=== PATIENT | female | born 1960 | race African-American/Black ===

== ENCOUNTER 2017-01-16 11:08 | Emergency (ER) | payer OTHER ==
[~2017-01-16 11:08] MED LIST: ATOR40TA49 PO; CHOL50006 PO; GABA300C3 PO; HYDR-3534 PO; ISOS60 PO; LISI-586 PO; PLAV75TA PO; ST JTAB PO; XANA0.5T PO
[2017-01-16 11:11] VITALS: BP 213/105; PULSE 62; RESP 17; TEMP 98.6; O2SAT 97
--- NOTE | 2017-01-16 11:42 | PD ---
HPI Chief Complaint: Injury Time Seen by Provider: 11:42 Travel History International Travel<30 days: No Contact w/Intl Traveler<30days: No Traveled to known affect area: No History of Present Illness HPI 56-year-old female presents to the emergency department complaining of left shoulder and left elbow pain after a mechanical fall that occurred yesterday. She says she fell onto her left side after a slip onto the floor at home. Patient states that she is here today just to make sure that 'everything is okay '. Denies head trauma, LOC, neck, back pain. States she has some tenderness over the left anterior shoulder but able to move through full range of motion. Her left elbow is mildly tender to palpation but has full range of motion and denies numbness or tingling to the arm. PFSH Past Medical History Arthritis: No Asthma: No Autoimmune Disease: No Blood Disorders: No Anxiety: Yes Depression: No Heart Rhythm Problems: No Cancer: No Cardiac Catheterization: Yes Cardiovascular Problems: Yes (HTN) High Cholesterol: No Chemotherapy: No Chest Pain: Yes Congestive Heart Failure: No COPD: No Cerebrovascular Accident: No Diabetes: No Diminished Hearing: No Endocrine: No GERD: No Glaucoma: No Genitourinary: No Headaches: No Hepatitis: No Hiatal Hernia: No Hypertension: Yes Immune Disorder: No Kidney Stones: No Musculoskeletal: No Neurologic: No Psychiatric: No Reproductive: No Respiratory: No Immunizations Current: No Migraines: No Myocardial Infarction: No Radiation Therapy: No Renal Failure: No Seizures: No Sickle Cell Disease: No Sleep Apnea: No Thyroid Disease: No Ulcer: No Past Surgical History Abdominal Surgery: Yes (CHOLECYSTECTOMY) AICD: No Appendectomy: No Arteriovenous Shunt: No Cardiac Surgery: No Cholecystectomy: Yes (1998) Coronary Artery Bypass Graft: No Coronary Stent: Yes (X3) Ear Surgery: No Endocrine Surgery: No Eye Surgery: No Genitourinary Surgery: No Gynecologic Surgery: Yes (ROCIO/BSO) Hysterectomy: Yes (1994-- TOTAL ) Insulin Pump: No Joint Replacement: No Oral Surgery: No Pacemaker: No Thoracic Surgery: No Other Surgery: Yes Social History Alcohol Use: No Tobacco Use: No Substance Use: No Allergies-Medications (Allergen,Severity, Reaction): Coded Allergies: No Known Allergies (Verified , 02/01/15) Reported Meds & Prescriptions Reported Meds & Active Scripts Active Zestoretic 20/12.5 (Lisinopril/Hctz 20 mg/12.5 mg) 20 Mg/12.5 Mg Tab 1 Tab PO DAILY Lipitor 40 Mg Tab (Atorvastatin Calcium) 40 Mg Tab 40 Mg PO DAILY Lortab 7.5 mg/325 mg (Hydrocodone/Acetaminophen 7.5 mg/325 mg) 1 Tab 1 Tab PO Q4H PRN Xanax 0.5 mg (Alprazolam) Alprazolam 0.5 mg Tab 1 Tab PO DAILY PRN Gabapentin 300 Mg Cap 300 Mg PO TID Plavix (Clopidogrel Bisulfate) 75 Mg Tab 75 Mg PO DAILY Imdur 60 Mg (Isosorbide Mononitrate) 60 Mg Tabcr 60 Mg PO DAILY Reported Vitamin D (Cholecalciferol) 5,000 Unit Tab 1,000 Unit PO DAILY Aspirin Ec Low Dose (Aspirin) 81 Mg Tab 81 Mg PO HS Review of Systems Except as stated in HPI: all other systems reviewed are Neg Physical Exam Narrative GENERAL: Well-nourished, well-developed patient. SKIN: Focused skin assessment warm/dry. HEAD: Normocephalic.Atraumatic. EYES: No scleral icterus. No injection or drainage. PERRLA, EOMI NECK: Supple, trachea midline. No JVD or lymphadenopathy. No midline tenderness. CARDIOVASCULAR: Regular rate and rhythm without murmurs, gallops, or rubs. RESPIRATORY: Breath sounds equal bilaterally. No accessory muscle use. MUSCULOSKELETAL: No cyanosis, or edema. Left elbow- full ROM with mild tenderness to the extreme flexion and extension. neurovascularly intact. no clicks pops, deformities, ecchymosis, or edema. Left shoulder- mild TTP over anterior AC joint, full range of motion with mild ' pulling' sensation to the extremes of ROM. neurovascularly intact. no clocks, pops, deformities, ecchymosis or edema. BACK: Nontender without obvious deformity. No CVA tenderness. No midline tenderness Data Data Last Documented VS Vital Signs Date Time Temp Pulse Resp B/P (MAP) Pulse Ox O2 Delivery O2 Flow Rate FiO2 01/16/17 12:07 01/16/17 11:11 98.6 62 17 97 Room Air Orders Orders Ed Discharge Order (01/16/17 11:42) MDM Medical Decision Making Medical Screen Exam Complete: Yes Emergency Medical Condition: Yes Differential Diagnosis Left elbow pain contusion versus fracture versus sprain Left shoulder contusion versus fracture versus sprain Narrative Course 56-year-old female presents to the emergency department complaining of left shoulder and left elbow pain after a mechanical fall that occurred yesterday. She says she fell onto her left side after a slip onto the floor at home. Patient states that she is here today just to make sure that 'everything is okay '. Denies head trauma, LOC, neck, back pain. States she has some tenderness over the left anterior shoulder but able to move through full range of motion. Her left elbow is mildly tender to palpation but has full range of motion and denies numbness or tingling to the arm. Vital Signs stable. Patient has full range of motion of shoulder and elbow with minimal discomfort. No deformities, skin intact, no obvious contusions. Patient able to perform Apley's without difficulty, rotation of forearm, flexion and extension of the elbow. Patient states she has mild tenderness is with extreme flexion located in the lateral and medial epicondyle. I had to exert a greater than normal pressure to elicit this pain. I offered patient x-rays of her shoulder and elbow after explaining my findings to patient. Patient stated that she will come back if her pain does not resolve. Based off of H&P I have a low suspicion of fracture at this time. Patient understands and will comply. Pt to use tylenol or motrin for pain relief. Compression and ice as well. Diagnosis Primary Impression: Shoulder contusion Qualified Codes: S40.012A - Contusion of left shoulder, initial encounter Additional Impression: Elbow contusion Qualified Codes: S50.02XA - Contusion of left elbow, initial encounter Referrals: Primary Care Physician Additional Instructions: Follow-up with her primary care physician within 2-3 days. If your shoulder or elbow pain does not improve or worsens, return to the emergency department. If he developed numbness or tingling of the extremity return to the emergency department. Continue Tylenol as needed for pain. Disposition: 01 DISCHARGE HOME Condition: Stable Minna Martínez Jan 16, 2017 11:42
== END 2017-01-16 12:08 | disposition home or self-care (01) ==
LOC: NEPK 11:08
DX: S40.012A Contusion of left shoulder, initial encounter (principal); S50.02XA Contusion of left elbow, initial encounter; W01.0XXA Fall on same level from slipping, tripping and stumbling without subsequent striking against object, initial encounter; Y92.009 Unspecified place in unspecified non-institutional (private) residence as the place of occurrence of the external cause
CPT/HCPCS: 99282

== ENCOUNTER 2017-04-27 21:36 | Emergency (ER) | payer OTHER ==
[~2017-04-27] VITALS: Ht 160 cm; Wt 112.0 kg
[2017-04-27 21:51] VITALS: BP 163/78; PULSE 68; RESP 20; TEMP 99.5; O2SAT 97
[2017-04-27] MEDS ORDERED: ISOS60TA PO (22:07)
[2017-04-27] MEDS ORDERED: LISI20TA PO (22:07)
[2017-04-27] MEDS ORDERED: ASPI81CH6 CHEW (22:07)
[2017-04-27] MEDS ORDERED: ATOR80TA45 PO (22:07)
[2017-04-27] MEDS ORDERED: VITA1000 PO (22:13)
[2017-04-27] MEDS ORDERED: PLAV75TA29 PO (22:13)
[2017-04-27] MEDS ORDERED: DAILTAB38 PO (22:13)
[2017-04-27] MEDS ORDERED: guaiFENesin/CODEINE SYRUP 200 MG/20 MG/10 ML CUP PO ONE (22:15)
[2017-04-27] MEDS ORDERED: HYDR-3583 PO (22:15)
--- NOTE | 2017-04-27 22:21 | PD ---
HPI Chief Complaint: Cold / Flu Symptoms Time Seen by Provider: 22:06 Travel History International Travel<30 days: No Contact w/Intl Traveler<30days: No Traveled to known affect area: No History of Present Illness HPI 57yo F with PMH of CAD s/p stent here with c/o cough, fever, throat pain, nasal congestion for 3 days. Said she has been coughing a lot and has some pain in chest only when she coughs. Denies any chest pain otherwise. Denies any sob, n /v, abdominal pain, focal weakness or numbness. PFSH Past Medical History Arthritis: No Asthma: No Autoimmune Disease: No Blood Disorders: No Anxiety: Yes Depression: No Heart Rhythm Problems: No Cancer: No Cardiac Catheterization: Yes Cardiovascular Problems: Yes (HTN) High Cholesterol: Yes Chemotherapy: No Chest Pain: Yes Congestive Heart Failure: No COPD: No Cerebrovascular Accident: No Coronary Artery Disease: Yes Diabetes: No Diminished Hearing: No Endocrine: No GERD: No Glaucoma: No Genitourinary: No Headaches: No Hepatitis: No Hiatal Hernia: No Hypertension: Yes Immune Disorder: No Kidney Stones: No Musculoskeletal: No Neurologic: No Psychiatric: No Reproductive: No Respiratory: No Immunizations Current: No Migraines: No Myocardial Infarction: No Radiation Therapy: No Renal Failure: No Seizures: No Sickle Cell Disease: No Sleep Apnea: No Thyroid Disease: No Ulcer: No Influenza Vaccination: No ?: Not : 6 Para: 4 : 2 Past Surgical History Abdominal Surgery: Yes (CHOLECYSTECTOMY) AICD: No Appendectomy: No Arteriovenous Shunt: No Cardiac Surgery: No Cholecystectomy: Yes (1998) Coronary Artery Bypass Graft: No Coronary Stent: Yes (X3) Ear Surgery: No Endocrine Surgery: No Eye Surgery: No Genitourinary Surgery: No Gynecologic Surgery: Yes (ROCIO/BSO) Hysterectomy: Yes Insulin Pump: No Joint Replacement: No Oral Surgery: No Pacemaker: No Thoracic Surgery: No Other Surgery: Yes Social History Alcohol Use: No Tobacco Use: No Substance Use: No Allergies-Medications (Allergen,Severity, Reaction): Coded Allergies: No Known Allergies (Verified , 02/01/15) Reported Meds & Prescriptions Reported Meds & Active Scripts Active Reported Hydrocodone-Acetaminophen 10-325 mg Tab 1 Tab PO BID Vitamin D-1000 (Cholecalciferol) 1,000 Unit Tab 1,000 Units PO DAILY Daily Multiple Vitamin (Multiple Vitamin) 1 Tab Tab 1 Tab PO DAILY Plavix (Clopidogrel Bisulfate) 75 Mg Tab 75 Mg PO DAILY Isosorbide Mononitrate ER (Isosorbide Mononitrate) 60 Mg Tab 60 Mg PO DAILY Atorvastatin (Atorvastatin Calcium) 80 Mg Tab 80 Mg PO HS Aspirin Low Dose (Aspirin) 81 Mg Chew 81 Mg CHEW DAILY Lisinopril-Hctz 20-12.5 mg Tab (Lisinopril/Hydrochlorothiazide) 20 Mg-12.5 Mg Tablet 1 Tab PO DAILY Review of Systems Except as stated in HPI: all other systems reviewed are Neg Physical Exam Narrative GENERAL: 57yo F in mild distress. SKIN: Focused skin assessment warm/dry. HEAD: Atraumatic. Normocephalic. EYES: Pupils equal and round. No scleral icterus. No injection or drainage. ENT: No nasal bleeding or discharge. Mucous membranes pink and moist. NECK: Trachea midline. No JVD. CARDIOVASCULAR: Regular rate and rhythm. No murmur appreciated. RESPIRATORY: No accessory muscle use. Clear to auscultation. Breath sounds equal bilaterally. GASTROINTESTINAL: Abdomen soft, non-tender, nondistended. MUSCULOSKELETAL: No obvious deformities. No clubbing. No cyanosis. No edema. NEUROLOGICAL: Awake and alert. No obvious cranial nerve deficits. Motor grossly within normal limits in all extremities. Sensation intact. Normal speech. PSYCHIATRIC: Appropriate mood and affect; insight and judgment normal. Data Data Last Documented VS Vital Signs Date Time Temp Pulse Resp B/P (MAP) Pulse Ox O2 Delivery O2 Flow Rate FiO2 04/27/17 22:08 68 18 97 Room Air 04/27/17 21:51 99.5 163/78 (106) Orders Orders Influenzae A/B Antigen (04/27/17 22:11) Chest, Single Ap (04/27/17 ) Electrocardiogram (04/27/17 ) Guaifen-Cod 200-20 Mg/10ml Liq (Robituss (04/27/17 22:15) Complete Blood Count With Diff (04/27/17 22:54) Basic Metabolic Panel (Bmp) (04/27/17 22:54) Troponin I (04/27/17 22:54) Prothrombin Time / Inr (Pt) (04/27/17 22:54) Act Partial Throm Time (Ptt) (04/27/17 22:54) MDM Medical Decision Making Medical Screen Exam Complete: Yes Emergency Medical Condition: Yes Interpretation(s) EKG: NSR 65bpm. TWI I, aVL. TWI V2 is new compare to prior. Differential Diagnosis URI vs. pneumonia vs. bronchitis vs. influenza Narrative Course 57yo F with flu like symptoms. Will check influenza, CXR and EKG. CXR negative. Although chest pain is atypical, there is new TWI V2 in a patient with CAD so will add labs including cardiac enzyme. Influenza still pending. Sign out to next team to follow up and reevaluate. Diagnosis Primary Impression: Atypical chest pain Vira Arreguin DO Apr 27, 2017 22:21
--- NOTE | 2017-04-27 22:45 | RADRPT ---
EXAM DATE/TIME: 04/27/2017 22:19 [facility] COMPARISON: CHEST SINGLE AP, July 31, 2010, 14:45. INDICATIONS : Cough. MEDICAL HISTORY : None. SURGICAL HISTORY : None. ENCOUNTER: Initial ACUITY: 3 days PAIN SCORE: 0/10 LOCATION: Bilateral chest FINDINGS: A single view of the chest demonstrates the lungs to be symmetrically aerated without evidence of mas s, infiltrate or effusion. The cardiomediastinal contours are unremarkable. Osseous structures are intact. CONCLUSION: The lungs are clear. Alexx Purcell MD on April 27, 2017 at 22:43 Board Certified Radiologist. This report was verified electronically.
[2017-04-27 23:15] LABS: AUTOMATED NEUTROPHIL # 5.6 TH/MM3 (1.8-7.7); BASOPHIL # 0.1 TH/MM3 (0-0.2); BASOPHIL % 1.2 % (0.0-2.0); EOSINOPHIL # 0.1 TH/MM3 (0-0.4); EOSINOPHIL % 1.4 % (0.0-4.0); HEMATOCRIT 37.8 % (35.0-46.0); HEMOGLOBIN 12.5 GM/DL (11.6-15.3); LYMPH % 23.9 % (9.0-44.0); LYMPHOCYTE # 1.9 TH/MM3 (1.0-4.8); MEAN CELL VOLUME 91.3 FL (80.0-100.0); MEAN CORPUSCULAR HEMOGLOBIN 30.2 PG (27.0-34.0); MEAN PLATELET VOLUME 9.6 FL (7.0-11.0); MONOCYTE # 0.3 TH/MM3 (0-0.9); NEUT % 69.5 % (16.0-70.0); PLATELET COUNT 165 TH/MM3 (150-450); RED BLOOD COUNT 4.14 MIL/MM3 (4.00-5.30); RED CELL DISTRIBUTION WIDTH 12.5 % (11.6-17.2); WHITE BLOOD COUNT 7.9 TH/MM3 (4.0-11.0)
[2017-04-27 23:21] LABS: CHLORIDE 105 MEQ/L (98-107); SODIUM (NA) 140 MEQ/L (136-145)
[2017-04-27 23:23] LABS: CALCIUM 8.6 MG/DL (8.5-10.1)
[2017-04-27 23:24] LABS: BICARBONATE 28.4 MEQ/L (21.0-32.0); BLOOD UREA NITROGEN 26 MG/DL (7-18); GLUCOSE,RANDOM 97 MG/DL (74-106)
[2017-04-27 23:27] LABS: PROTHROMBIN TIME - PATIENT 10.3 SEC (9.8-11.6)
[2017-04-27 23:28] LABS: GLOMERULAR FILTRATION RATE 62 ML/MIN (>89)
[2017-04-27 23:32] LABS: TROPONIN I LESS THAN 0.02 NG/ML (0.02-0.05)
[2017-04-27 23:40] VITALS: BP 170/81; PULSE 72; RESP 16; O2SAT 96
[2017-04-27] MEDS ORDERED: GUAISYP4 PO (23:52)
--- NOTE | 2017-04-27 23:52 | PD ---
Physical Exam Time Seen by Provider: 23:[address] Arreguin left this patient with me to check the laboratory and make a disposition. Data Data Last Documented VS Vital Signs Date Time Temp Pulse Resp B/P (MAP) Pulse Ox O2 Delivery O2 Flow Rate FiO2 04/27/17 23:40 72 16 170/81 (110) 96 Room Air 04/27/17 21:51 99.5 Orders Orders Influenzae A/B Antigen (04/27/17 22:11) Chest, Single Ap (04/27/17 ) Electrocardiogram (04/27/17 ) Guaifen-Cod 200-20 Mg/10ml Liq (Robituss (04/27/17 22:15) Complete Blood Count With Diff (04/27/17 22:54) Basic Metabolic Panel (Bmp) (04/27/17 22:54) Troponin I (04/27/17 22:54) Prothrombin Time / Inr (Pt) (04/27/17 22:54) Act Partial Throm Time (Ptt) (04/27/17 22:54) Labs Laboratory Tests Test 04/27/17 23:00 White Blood Count 7.9 TH/MM3 Red Blood Count 4.14 MIL/MM3 Hemoglobin 12.5 GM/DL Hematocrit 37.8 % Mean Corpuscular Volume 91.3 FL Mean Corpuscular Hemoglobin 30.2 PG Mean Corpuscular Hemoglobin Concent 33.0 % Red Cell Distribution Width 12.5 % Platelet Count 165 TH/MM3 Mean Platelet Volume 9.6 FL Neutrophils (%) (Auto) 69.5 % Lymphocytes (%) (Auto) 23.9 % Monocytes (%) (Auto) 4.0 % Eosinophils (%) (Auto) 1.4 % Basophils (%) (Auto) 1.2 % Neutrophils # (Auto) 5.6 TH/MM3 Lymphocytes # (Auto) 1.9 TH/MM3 Monocytes # (Auto) 0.3 TH/MM3 Eosinophils # (Auto) 0.1 TH/MM3 Basophils # (Auto) 0.1 TH/MM3 CBC Comment DIFF FINAL Differential Comment Prothrombin Time 10.3 SEC Prothromb Time International Ratio 1.0 RATIO Activated Partial Thromboplast Time 26.3 SEC Blood Urea Nitrogen 26 MG/DL Creatinine 1.10 MG/DL Random Glucose 97 MG/DL Calcium Level 8.6 MG/DL Sodium Level 140 MEQ/L Potassium Level 3.5 MEQ/L Chloride Level 105 MEQ/L Carbon Dioxide Level 28.4 MEQ/L Anion Gap 7 MEQ/L Estimat Glomerular Filtration Rate 62 ML/MIN Troponin I LESS THAN 0.02 NG/ML MDM Medical Record Reviewed: Yes Supervised Visit with EMILEE: No Interpretation(s) The chest x-ray is normal. The CBC is normal. The coagulation profile is normal. The basic metabolic profile shows a BUN of 26, creatinine 1.1 with GFR of 62 but is otherwise unremarkable. The troponin I is normal. Influenza A/B antigen is negative for flu a and flu B antigen. Differential Diagnosis Viral upper respiratory infection, pneumonia, bronchitis, electrolyte disorder, hypo-/hyperglycemia, strep pharyngitis, flu syndrome Narrative Course The patient has a viral upper respiratory infection. She will be given a codeine-containing cough syrup and follow-up with her primary care physician next week. She needs to increase her liquid intake. Diagnosis Primary Impression: Atypical chest pain Additional Impression: Viral upper respiratory infection Additional Instruction: The cough syrup was 1 or 2 teaspoons every 4-6 hours. Do not drink alcohol or drive on this cough syrup. Follow-up next week with your primary care physician. Med/Other Pt SpecificInfo: Prescription(s) given Scripts Guaifenesin-Codeine Liq (Guaifenesin AC Liq) 100-10 Mg/5 Ml Syrp 10 ML PO Q4H Y for COUGH, #1 BOTTLE 0 Refills Prov: Manuel Pereira MD 04/27/17 Disposition: 01 DISCHARGE HOME Condition: Stable Manuel Pereira MD Apr 27, 2017 23:52
--- NOTE | 2017-04-29 00:01 | EKG ---
Date Performed: 04/27/2017 Time Performed: 22:41:48 PTAGE: 57 years EKG: Sinus rhythm SEPTAL MYOCARDIAL INFARCTION MODERATE T-WAVE ABNORMALITY, CONSIDER LATERAL ISCHEMIA ABNORMAL ECG PREVIOUS TRACING : 07/31/2010 14.55 Since the prior tracing, there has been no significant dillard DOCTOR: To Machado Interpretating Date/Time 04/28/2017 23:59:45
== END 2017-04-28 00:08 | disposition home or self-care (01) ==
LOC: PHED 21:36
DX: R07.89 Other chest pain (principal); J06.9 Acute upper respiratory infection, unspecified; I10 Essential (primary) hypertension; I25.10 Atherosclerotic heart disease of native coronary artery without angina pectoris; Z79.02 Long term (current) use of antithrombotics/antiplatelets
CPT/HCPCS: 71045; 80048; 84484; 85025; 85610; 85730; 87804; 93005; 99285

== ENCOUNTER 2017-05-04 05:13 | Inpatient (IN) | payer OTHER ==
[~2017-05-04] VITALS: Ht 160 cm; Wt 101.1 kg
[2017-05-04] VITALS (9 sets, daily range): BP systolic 137–177; BP diastolic 65–86; PULSE 51–57; RESP 14–20; TEMP 96.8–98.8; O2SAT 95–98
[~2017-05-04 05:13] MED LIST changes: +ASPI81CH6 CHEW; -ATOR40TA49 PO; +ATOR80TA45 PO; -CHOL50006 PO; +DAILTAB38 PO; -GABA300C3 PO; +GUAISYP4 PO; -HYDR-3534 PO; +HYDR-3583 PO; -ISOS60 PO; +ISOS60TA PO; -LISI-586 PO; +LISI20TA PO; -PLAV75TA PO; +PLAV75TA29 PO; -ST JTAB PO; +VITA1000 PO; -XANA0.5T PO
--- NOTE | 2017-05-04 05:41 | PD ---
HPI Chief Complaint: Left-sided numbness and tingling and weakness. Time Seen by Provider: 05:40 Travel History International Travel<30 days: No Contact w/Intl Traveler<30days: No History of Present Illness HPI Patient 57-year-old female last normal about 1030 last night presents the emergency department for evaluation of left upper left lower extremity numbness and tingling weakness in a foggy feeling in her head. Patient states she awoke about 2:00 in the morning with these symptoms, she did not think anything of them and was able to go back to sleep. She woke up again at about 430 and still with the symptoms she decided to come in and be seen. States that she is on "blood thinners" but states that she is on a medication for the stents in her heart. She does not know the medication name. States symptoms have been constant ever since she woke up about 2:00 this morning. She denies any chest pain shortness of breath abdominal pain nausea or vomiting. PFSH Past Medical History Arthritis: No Asthma: No Autoimmune Disease: No Blood Disorders: No Anxiety: Yes Depression: No Heart Rhythm Problems: No Cancer: No Cardiac Catheterization: Yes Cardiovascular Problems: Yes (HTN) High Cholesterol: Yes Chemotherapy: No Chest Pain: Yes Congestive Heart Failure: No COPD: No Cerebrovascular Accident: No Coronary Artery Disease: Yes Diabetes: No Diminished Hearing: No Endocrine: No GERD: No Glaucoma: No Genitourinary: No Headaches: No Hepatitis: No Hiatal Hernia: No Hypertension: Yes Immune Disorder: No Kidney Stones: No Musculoskeletal: No Neurologic: No Psychiatric: No Reproductive: No Respiratory: No Immunizations Current: No Migraines: No Myocardial Infarction: No Radiation Therapy: No Renal Failure: No Seizures: No Sickle Cell Disease: No Sleep Apnea: No Thyroid Disease: No Ulcer: No : 6 Para: 4 : 2 Past Surgical History Abdominal Surgery: Yes (CHOLECYSTECTOMY) AICD: No Appendectomy: No Arteriovenous Shunt: No Cardiac Surgery: No Cholecystectomy: Yes (1998) Coronary Artery Bypass Graft: No Coronary Stent: Yes (X3) Ear Surgery: No Endocrine Surgery: No Eye Surgery: No Genitourinary Surgery: No Gynecologic Surgery: Yes (ROCIO/BSO) Hysterectomy: Yes Insulin Pump: No Joint Replacement: No Oral Surgery: No Pacemaker: No Thoracic Surgery: No Other Surgery: Yes Social History Alcohol Use: No Tobacco Use: No Substance Use: No Allergies-Medications (Allergen,Severity, Reaction): Coded Allergies: No Known Allergies (Verified , 02/01/15) Reported Meds & Prescriptions Reported Meds & Active Scripts Active Guaifenesin AC Liq (Guaifenesin-Codeine Liq) 100-10 Mg/5 Ml Syrp 10 Ml PO Q4H PRN Reported Metoprolol Tartrate 25 Mg Tab 12.5 Mg PO BID Hydrocodone-Acetaminophen 10-325 mg Tab 1 Tab PO BID Vitamin D-1000 (Cholecalciferol) 1,000 Unit Tab 1,000 Units PO DAILY Daily Multiple Vitamin (Multiple Vitamin) 1 Tab Tab 1 Tab PO DAILY Plavix (Clopidogrel Bisulfate) 75 Mg Tab 75 Mg PO DAILY Atorvastatin (Atorvastatin Calcium) 80 Mg Tab 80 Mg PO HS Aspirin Low Dose (Aspirin) 81 Mg Chew 81 Mg CHEW DAILY Lisinopril-Hctz 20-12.5 mg Tab (Lisinopril/Hydrochlorothiazide) 20 Mg-12.5 Mg Tablet 1 Tab PO DAILY Review of Systems Except as stated in HPI: all other systems reviewed are Neg Physical Exam Narrative GENERAL: Well-developed, morbidly obese female in no obvious distress. SKIN: Focused skin assessment warm/dry. HEAD: Atraumatic. Normocephalic. EYES: Pupils equal and round. No scleral icterus. No injection or drainage. ENT: No nasal bleeding or discharge. Mucous membranes pink and moist. NECK: Trachea midline. No JVD. CARDIOVASCULAR: Regular rate and rhythm. No murmur appreciated. RESPIRATORY: No accessory muscle use. Clear to auscultation. Breath sounds equal bilaterally. GASTROINTESTINAL: Abdomen soft, non-tender, nondistended. Hepatic and splenic margins not palpable. MUSCULOSKELETAL: No obvious deformities. No clubbing. No cyanosis. No edema. NEUROLOGICAL: Awake and alert. Cranial nerves II through XII are grossly intact and nonfocal, 5 out of 5 strength in bilateral upper extremities and sports book board attendant strength, there is 5 out of 5 strength in plantar flexion bilaterally. DTRs are 2+ and bilaterally equal patella and brachial, the flexion at the hip off the bed she is able to keep her leg up but it wobbles up and down and she has decreased strength against resistance when compared to the right. On her hands there is no pronator drift but the hand does drift down slowly but does never touch the bed on the left. PSYCHIATRIC: Appropriate mood and affect; insight and judgment normal. Data Data Last Documented VS Vital Signs Date Time Temp Pulse Resp B/P (MAP) Pulse Ox O2 Delivery O2 Flow Rate FiO2 05/04/17 06:36 56 14 137/71 (93) 98 Room Air 05/04/17 05:22 97.9 Orders Orders Electrocardiogram (05/04/17 05:40) Complete Blood Count With Diff (05/04/17 05:40) Comprehensive Metabolic Panel (05/04/17 05:40) Prothrombin Time / Inr (Pt) (05/04/17 05:40) Act Partial Throm Time (Ptt) (05/04/17 05:40) Urinalysis - C+S If Indicated (05/04/17 05:40) Ct Brain W/O Iv Contrast(Rout) (05/04/17 05:40) Blood Glucose (05/04/17 05:40) Ecg Monitoring (05/04/17 05:40) Iv Access Insert/Monitor (05/04/17 05:40) Oximetry (05/04/17 05:40) Sodium Chloride 0.9% Flush (Ns Flush) (05/04/17 05:45) Aspirin Chew (Aspirin Chew) (05/04/17 05:45) Troponin I (05/04/17 05:40) Admit Order (Ed Use Only) (05/04/17 ) Consult Neurology (05/04/17 ) Labs Laboratory Tests Test 05/04/17 05:55 White Blood Count 5.9 TH/MM3 Red Blood Count 4.26 MIL/MM3 Hemoglobin 12.9 GM/DL Hematocrit 38.7 % Mean Corpuscular Volume 90.7 FL Mean Corpuscular Hemoglobin 30.3 PG Mean Corpuscular Hemoglobin Concent 33.4 % Red Cell Distribution Width 12.1 % Platelet Count 200 TH/MM3 Mean Platelet Volume 9.5 FL Neutrophils (%) (Auto) 62.5 % Lymphocytes (%) (Auto) 27.9 % Monocytes (%) (Auto) 7.9 % Eosinophils (%) (Auto) 1.3 % Basophils (%) (Auto) 0.4 % Neutrophils # (Auto) 3.7 TH/MM3 Lymphocytes # (Auto) 1.6 TH/MM3 Monocytes # (Auto) 0.5 TH/MM3 Eosinophils # (Auto) 0.1 TH/MM3 Basophils # (Auto) 0.0 TH/MM3 CBC Comment DIFF FINAL Differential Comment Prothrombin Time 10.5 SEC Prothromb Time International Ratio 1.0 RATIO Activated Partial Thromboplast Time 26.4 SEC Blood Urea Nitrogen 22 MG/DL Creatinine 0.96 MG/DL Random Glucose 108 MG/DL Total Protein 6.8 GM/DL Albumin 3.2 GM/DL Calcium Level 8.3 MG/DL Alkaline Phosphatase 122 U/L Aspartate Amino Transf (AST/SGOT) 16 U/L Alanine Aminotransferase (ALT/SGPT) 28 U/L Total Bilirubin LESS THAN 0.1 MG/DL Sodium Level 137 MEQ/L Potassium Level 3.6 MEQ/L Chloride Level 104 MEQ/L Carbon Dioxide Level 27.1 MEQ/L Anion Gap 6 MEQ/L Estimat Glomerular Filtration Rate 73 ML/MIN Troponin I LESS THAN 0.02 NG/ML MDM Medical Decision Making Medical Screen Exam Complete: Yes Emergency Medical Condition: Yes Differential Diagnosis Subacute stroke, TIA, intracranial hemorrhage, hypertensive emergency, electrolyte abnormality Narrative Course Patient room to the emergency department, the last seen normal time was 1030, this puts her out of the window for stroke alert and TPA. Her symptoms are fairly mild, NIH stroke scale at 0540 is 2. Not a candidate for systemic TPA given no definitive timeline and only mild/ minimal deficit. ASA given. CT head negative. Discussed with patient i think she had mild CVA and recommend admission, she is agreeable. Discussed with Dr. Green and he is agreeable. Diagnosis Primary Impression: Stroke Qualified Codes: I63.9 - Cerebral infarction, unspecified Admitting Information Admitting Physician Requests: Admit Condition: Stable Milton Crowe MD May 04, 2017 05:41
[2017-05-04] MEDS ORDERED: SODIUM CHLORIDE 0.9% FLUSH 10 ML FLUSH IV FLUSH PRN ×2 (05:45→09:45)
[2017-05-04] MEDS ORDERED: ASPIRIN 81 MG CHEW TAB CHEW ONE (05:45)
[2017-05-04 06:12] LABS: AUTOMATED NEUTROPHIL # 3.7 TH/MM3 (1.8-7.7); BASOPHIL % 0.4 % (0.0-2.0); EOSINOPHIL # 0.1 TH/MM3 (0-0.4); EOSINOPHIL % 1.3 % (0.0-4.0); HEMATOCRIT 38.7 % (35.0-46.0); HEMOGLOBIN 12.9 GM/DL (11.6-15.3); LYMPH % 27.9 % (9.0-44.0); LYMPHOCYTE # 1.6 TH/MM3 (1.0-4.8); MEAN CELL VOLUME 90.7 FL (80.0-100.0); MEAN CORPUSCULAR HEMOGLOBIN 30.3 PG (27.0-34.0); MEAN CORPUSCULAR HGB CONC 33.4 % (32.0-36.0); MEAN PLATELET VOLUME 9.5 FL (7.0-11.0); MONO % 7.9 % (0.0-8.0); MONOCYTE # 0.5 TH/MM3 (0-0.9); NEUT % 62.5 % (16.0-70.0); PLATELET COUNT 200 TH/MM3 (150-450); RED BLOOD COUNT 4.26 MIL/MM3 (4.00-5.30); RED CELL DISTRIBUTION WIDTH 12.1 % (11.6-17.2); WHITE BLOOD COUNT 5.9 TH/MM3 (4.0-11.0)
[2017-05-04 06:19] LABS: CHLORIDE 104 MEQ/L (98-107); SODIUM (NA) 137 MEQ/L (136-145)
[2017-05-04 06:22] LABS: ALBUMIN 3.2 GM/DL (3.4-5.0); BICARBONATE 27.1 MEQ/L (21.0-32.0); CALCIUM 8.3 MG/DL (8.5-10.1)
[2017-05-04 06:23] LABS: BLOOD UREA NITROGEN 22 MG/DL (7-18); GLUCOSE,RANDOM 108 MG/DL (74-106)
[2017-05-04 06:26] LABS: ALT (GPT) 28 U/L (10-53); AST (GOT) 16 U/L (15-37); CREATININE 0.96 MG/DL (0.50-1.00); GLOMERULAR FILTRATION RATE 73 ML/MIN (>89)
[2017-05-04 06:27] LABS: TOTAL BILIRUBIN ADULT LESS THAN 0.1 MG/DL (0.2-1.0); TOTAL PROTEIN 6.8 GM/DL (6.4-8.2)
[2017-05-04 06:29] LABS: ALKALINE PHOSPHATASE 122 U/L (45-117)
[2017-05-04 06:31] LABS: TROPONIN I LESS THAN 0.02 NG/ML (0.02-0.05)
[2017-05-04] MEDS ORDERED: METO25TA3 PO (06:34)
[2017-05-04 06:38] LABS: PROTHROMBIN TIME - PATIENT 10.5 SEC (9.8-11.6)
--- NOTE | 2017-05-04 06:41 | RADRPT ---
EXAM DATE/TIME: 05/04/2017 06:16 [facility] COMPARISON: CT BRAIN W/O CONTRAST, August 05, 2010, 0:03. INDICATIONS : Altered mental status. Left upper and lower extremity weakness with tingling. RADIATION DOSE: 57.21 CTDIvol (mGy) MEDICAL HISTORY : Hypertension. SURGICAL HISTORY : None. ENCOUNTER: Initial ACUITY: 1 day PAIN SCALE: 0/10 LOCATION: cranial TECHNIQUE: Multiple contiguous axial images were obtained of the head. Using automated exposure control and adj ustment of the mA and/or kV according to patient size, radiation dose was kept as low as reasonably a chievable to obtain optimal diagnostic quality images. DICOM format image data is available electro nically for review and comparison. FINDINGS: CEREBRUM: The ventricles are normal for age. No evidence of midline shift, mass lesion, hemorrhage or acute in farction. No extra-axial fluid collections are seen. POSTERIOR FOSSA: The cerebellum and brainstem are intact. The 4th ventricle is midline. The cerebellopontine angle i s unremarkable. EXTRACRANIAL: The visualized portion of the orbits is intact. Small retention cyst posteriorly in the right maxilla ry antra. SKULL: The calvaria is intact. No evidence of skull fracture. CONCLUSION: 1. Mild chronic sinusitis in the right maxillary antra. 2. Otherwise negative. Demario Daley MD on May 04, 2017 at 6:38 Board Certified Radiologist. This report was verified electronically.
[2017-05-04] MEDS ORDERED: BISACODYL 10 MG SUPP RECTAL PRN (09:45)
[2017-05-04] MEDS ORDERED: LACTULOSE SYRUP 20 GM/30 ML CUP PO PRN (09:45)
[2017-05-04] MEDS ORDERED: MAGNESIUM HYDROXIDE SUSP 30 ML CUP PO PRN (09:45)
[2017-05-04] MEDS ORDERED: SENNOSIDES 8.6 MG TAB PO PRN (09:45)
[2017-05-04] MEDS ORDERED: NALOXONE HCL 0.4 MG/ML AMP IV PUSH PRN (09:45)
[2017-05-04] MEDS ORDERED: ACETAMINOPHEN 325 MG TAB PO PRN (09:45)
--- NOTE | 2017-05-04 09:57 | HHI.HP ---
HPI Service [facility] Hospitalists Primary Care Physician Chaparro Ford MD Admission Diagnosis Subacute right hemisphere stroke. Chief Complaint: left sided weakness since 1 am Travel History International Travel<30 Days: No Contact w/Intl Traveler <30 Da: No Traveled to Known Affected Are: No History of Present Illness Patient 57-year-old female last normal about 1030 last night presents the emergency department for evaluation of left upper left lower extremity numbness and tingling weakness in a foggy feeling in her head. Patient states she awoke about 1 00 in the morning with these symptoms, she did not think anything of them and was able to go back to sleep. She woke up again at about 430 and still with the symptoms she decided to come in and be seen. States that she is on "blood thinners" but states that she is on a medication for the stents in her heart. States symptoms have been constant ever since she woke up about 2: 00 this morning. She denies any chest pain shortness of breath abdominal pain nausea or vomiting. Patient is on plavix and baby aspirin . Patient with recent GI bleed and has GI appt today with possible endo and colonoscopy next week. Patient speech normal . Review of Systems Constitutional: COMPLAINS OF: Dizziness Neurologic: COMPLAINS OF: Localized weakness Past Family Social History Past Medical History recent GI bleed ,cad s/p stent times 3 ,Balloon angioplasty 2 weeks ago, hypertension,hyperlipidemia Past Surgical History stent times 3.hysterectomy gallbladder Reported Medications Metoprolol Tartrate 25 Mg Tab 12.5 Mg PO BID Hydrocodone-Acetaminophen 10-325 mg Tab 1 Tab PO BID Vitamin D-1000 (Cholecalciferol) 1,000 Unit Tab 1,000 Units PO DAILY Daily Multiple Vitamin (Multiple Vitamin) 1 Tab Tab 1 Tab PO DAILY Plavix (Clopidogrel Bisulfate) 75 Mg Tab 75 Mg PO DAILY Atorvastatin (Atorvastatin Calcium) 80 Mg Tab 80 Mg PO HS Aspirin Low Dose (Aspirin) 81 Mg Chew 81 Mg CHEW DAILY Lisinopril-Hctz 20-12.5 mg Tab (Lisinopril/Hydrochlorothiazide) 20 Mg-12.5 Mg Tablet 1 Tab PO DAILY Allergies: Coded Allergies: No Known Allergies (Verified , 02/01/15) Social History NS,ND Physical Exam Vital Signs Vital Signs Date Time Temp Pulse Resp B/P (MAP) Pulse Ox O2 Delivery O2 Flow Rate FiO2 05/04/17 08:19 58 16 152/71 (98) 98 05/04/17 08:00 96.8 56 18 177/86 (116) 96 05/04/17 07:15 Room Air 05/04/17 07:05 57 16 160/78 (105) 97 Room Air 05/04/17 06:36 56 14 137/71 (93) 98 Room Air 05/04/17 05:42 97 Room Air 05/04/17 05:42 Room Air 05/04/17 05:22 97.9 52 18 145/70 (95) 97 Physical Exam GENERAL: This is a well-nourished, well-developed patient, in no apparent distress. SKIN: No rashes, ecchymoses or lesions. Cool and dry. HEAD: Atraumatic. Normocephalic. No temporal or scalp tenderness. EYES: Pupils equal round and reactive. Extraocular motions intact. No scleral icterus. No injection or drainage. ENT: Nose without bleeding, purulent drainage or septal hematoma. Throat without erythema, tonsillar hypertrophy or exudate. Uvula midline. Airway patent. NECK: Trachea midline. No JVD or lymphadenopathy. Supple, nontender, no meningeal signs. CARDIOVASCULAR: Regular rate and rhythm without murmurs, gallops, or rubs. RESPIRATORY: Clear to auscultation. Breath sounds equal bilaterally. No wheezes , rales, or rhonchi. GASTROINTESTINAL: Abdomen soft, non-tender, nondistended. No hepato-splenomegaly , or palpable masses. No guarding. MUSCULOSKELETAL: Extremities without clubbing, cyanosis, or edema. No joint tenderness, effusion, or edema noted. No calf tenderness. Negative Homans sign bilaterally. NEUROLOGICAL: Awake and alert. Cranial nerves II through XII intact. Motor and sensory grossly within normal limits. 3 out of 5 muscle strength left side upper and lower extremities Normal speech. Laboratory Laboratory Tests Test 05/04/17 05:55 White Blood Count 5.9 Red Blood Count 4.26 Hemoglobin 12.9 Hematocrit 38.7 Mean Corpuscular Volume 90.7 Mean Corpuscular Hemoglobin 30.3 Mean Corpuscular Hemoglobin Concent 33.4 Red Cell Distribution Width 12.1 Platelet Count 200 Mean Platelet Volume 9.5 Neutrophils (%) (Auto) 62.5 Lymphocytes (%) (Auto) 27.9 Monocytes (%) (Auto) 7.9 Eosinophils (%) (Auto) 1.3 Basophils (%) (Auto) 0.4 Neutrophils # (Auto) 3.7 Lymphocytes # (Auto) 1.6 Monocytes # (Auto) 0.5 Eosinophils # (Auto) 0.1 Basophils # (Auto) 0.0 CBC Comment DIFF FINAL Differential Comment Prothrombin Time 10.5 Prothromb Time International Ratio 1.0 Activated Partial Thromboplast Time 26.4 Blood Urea Nitrogen 22 Creatinine 0.96 Random Glucose 108 Total Protein 6.8 Albumin 3.2 Calcium Level 8.3 Alkaline Phosphatase 122 Aspartate Amino Transf (AST/SGOT) 16 Alanine Aminotransferase (ALT/SGPT) 28 Total Bilirubin LESS THAN 0.1 Sodium Level 137 Potassium Level 3.6 Chloride Level 104 Carbon Dioxide Level 27.1 Anion Gap 6 Estimat Glomerular Filtration Rate 73 Troponin I LESS THAN 0.02 Result Diagram: 05/04/17 0555 05/04/17 0555 Imaging Last [address] 05/04/17 0540 Signed Impressions: Service Date/Time: Thursday, May 04, 2017 06:16 - CONCLUSION: 1. Mild chronic sinusitis in the right maxillary antra. 2. Otherwise negative. Demario Daley MD Course ekg no acute changes Septic Shock Reassessment Septic shock perfusion: reassessment completed Caprini VTE Risk Assessment Caprini VTE Risk Assessment: Mod/High Risk (score >= 2) Caprini Risk Assessment Model Point Value = 1 Point Value = 2 Point Value = 3 Point Value = 5 Age 41-60 Minor surgery BMI > 25 kg/m2 Swollen legs Varicose veins or History of unexplained or recurrent spontaneous Oral contraceptives or hormone replacement Sepsis (< 1 month) Serious lung disease, including pneumonia (< 1 month) Abnormal pulmonary function Acute myocardial infarction Congestive heart failure (< 1 month) History of inflammatory bowel disease Medical patient at bed rest Age 61-74 Arthroscopic surgery Major open surgery (> 45 min) Laparoscopic surgery (> 45 min) Malignancy Confined to bed (> 72 hours) Immobilizing plaster cast Central venous access Age >= 75 History of VTE Family history of VTE Factor V Leiden Prothrombin [id number] Lupus anticoagulant Anticardiolipin antibodies Elevated serum homocysteine Heparin-induced thrombocytopenia Other congenital or acquired thrombophilia Stroke (< 1 month) Elective arthroplasty Hip, pelvis, or leg fracture Acute spinal cord injury (< 1 month) Prophylaxis Regimen Total Risk Factor Score Risk Level Prophylaxis Regimen 0-1 Low Early ambulation 2 Moderate Order ONE of the following: *Sequential Compression Device (SCD) *Heparin 5000 units SQ BID 3-4 Higher Order ONE of the following medications: *Heparin 5000 units SQ TID *Enoxaparin/Lovenox 40 mg SQ daily (WT < 150 kg, CrCl > 30 mL/min) *Enoxaparin/Lovenox 30 mg SQ daily (WT < 150 kg, CrCl > 10-29 mL/min) *Enoxaparin/Lovenox 30 mg SQ BID (WT < 150 kg, CrCl > 30 mL/min) AND/OR *Sequential Compression Device (SCD) 5 or more Highest Order ONE of the following medications: *Heparin 5000 units SQ TID (Preferred with Epidurals) *Enoxaparin/Lovenox 40 mg SQ daily (WT < 150 kg, CrCl > 30 mL/min) *Enoxaparin/Lovenox 30 mg SQ daily (WT < 150 kg, CrCl > 10-29 mL/min) *Enoxaparin/Lovenox 30 mg SQ BID (WT < 150 kg, CrCl > 30 mL/min) AND *Sequential Compression Device (SCD) Assessment and Plan Problem List: (1) Stroke ICD Codes: I63.9 - Cerebral infarction, unspecified Status: Acute Plan: persistent left sided weakness suggesting CVA MRI,MRA ordered already on plavix increase asa to 325 ask neurology to see (2) GI (gastrointestinal bleed) ICD Codes: K92.2 - Gastrointestinal hemorrhage, unspecified Plan: recent gi bleed will observe add protonix po if any further bleeding will need to see GI does have outpatient appt next week follow CBC (3) CAD (coronary artery disease) ICD Codes: I25.9 - CAD (coronary artery disease) Status: Acute Plan: stable at present continue home med (4) Hypertension ICD Codes: I10 - Hypertension Status: Acute Plan: BP stable continue home med Assessment and Plan further plan as test results return Code Status full Discussed Condition With patient Physician Certification 2 Midnight Certification Type: Admission for Inpatient Services Order for Inpatient Services The services are ordered in accordance with Medicare regulations or non- Medicare payer requirements, as applicable. In the case of services not specified as inpatient-only, they are appropriately provided as inpatient services in accordance with the 2-midnight benchmark. Estimated LOS (days): 3 3 days is the estimated time the patient will need to remain in the hospital, assuming treatment plan goals are met and no additional complications. Post-Hospital Plan: Not yet determined Problem Qualifiers (1) Stroke: Qualified Codes: I63.9 - Cerebral infarction, unspecified James Benavidez MD May 04, 2017 09:57
[2017-05-04 11:23] LABS: BILIRUBIN, URINE NEG (NEG); BLOOD, URINE NEG (NEG); GLUCOSE,URINE NEG (NEG); KETONE, URINE NEG (NEG); NITRITE,URINE NEG (NEG); URINE COLOR YELLOW (YELLW/STRAW); URINE LEUKOCYTE ESTERASE NEG (NEG)
--- NOTE | 2017-05-04 11:25 | EKG ---
Date Performed: 05/04/2017 Time Performed: 05:47:50 PTAGE: 57 years EKG: SINUS BRADYCARDIA MODERATE INTRAVENTRICULAR CONDUCTION DELAY NONSPECIFIC T-WAVE ABNORMALITY ABNORMAL ECG PREVIOUS TRACING : 04/27/2017 22.41 Since the previous tracing, no significant change noted DOCTOR: Vladimir Wilkins Interpretating Date/Time 05/04/2017 11:23:43
[2017-05-04 11:31] LABS: AMORPHOUS SEDIMENT, URINE FEW; RBC, URINE 0-3 /hpf (0-3); SQUAMOUS EPITHELIAL CELL URINE 0-5 /hpf (0-5)
[2017-05-04 11:32] LABS: WBC, URINE 0-2 /hpf (0-5)
--- NOTE | 2017-05-04 15:10 | ECHRPT ---
Indication: CVA/TIA CONCLUSIONS Normal left ventricular size and wall thickness. The left ventricular systolic function is normal wi th an estimated ejection fraction in the range of 60-65%. Normal wall motion. Trace mitral valve regurgitation. There is trace tricuspid valve regurgitation. BP: 152 / 71 HR: 58 Rhythm: Sinus MEASUREMENTS (Male / Female) Normal Values Technical Quality:Fair 2D ECHO LV Diastolic Diameter PLAX 4.5 cm 4.2 - 5.9 / 3.9 - 5.3 cm LV Systolic Diameter PLAX 3.0 cm IVS Diastolic Thickness 1.6 cm 0.6 - 1.0 / 0.6 - 0.9 cm LVPW Diastolic Thickness 1.6 cm 0.6 - 1.0 / 0.6 - 0.9 cm LV Relative Wall Thickness 0.7 RV Internal Dim ED PLAX 2.5 cm LVOT Diameter 1.9 cm Aortic Root Diameter 2.9 cm LA Systolic Diameter LX 3.0 cm 3.0 - 4.0 / 2.7 - 3.8 cm M-MODE AV Cusp Separation MM 2.0 cm DOPPLER AV Peak Velocity 193.0 cm/s AV Peak Gradient 14.9 mmHg AV Mean Gradient 6.0 mmHg AV Velocity Time Integral 33.9 cm LVOT Peak Velocity 97.0 cm/s LVOT Peak Gradient 3.8 mmHg LVOT Velocity Time Integral 26.6 cm AV Area Cont Eq vti 2.2 cm AV Area Cont Eq pk 1.4 cm Mitral E Point Velocity 80.0 cm/s Mitral A Point Velocity 80.0 cm/s Mitral E to A Ratio 1.0 LV E' Lateral Velocity 6.2 cm/s Mitral E to LV E' Lateral Ratio 12.8 LV E' Septal Velocity 5.7 cm/s Mitral E to LV E' Septal Ratio 14.2 PV Peak Velocity 61.7 cm/s PV Peak Gradient 1.5 mmHg FINDINGS LEFT VENTRICLE Normal left ventricular size and wall thickness. The left ventricular systolic function is normal wi th an estimated ejection fraction in the range of 60-65%. Normal wall motion. RIGHT VENTRICLE Normal right ventricular size and systolic function. LEFT ATRIUM The left atrial size is normal. RIGHT ATRIUM The right atrial size is normal. ATRIAL SEPTUM No atrial level shunt is demonstrated by color flow Doppler interrogation. AORTA The aortic root and proximal ascending aorta are not well visualized. MITRAL VALVE Trace mitral valve regurgitation. AORTIC VALVE Trileaflet aortic valve. No aortic valve stenosis or regurgitation. TRICUSPID VALVE There is trace tricuspid valve regurgitation. PULMONARY VALVE No pulmonary valve regurgitation or stenosis. VESSELS The inferior vena cava was not well visualized. PERICARDIUM No pericardial effusion. Constantino Ang MD (Electronically Signed) Final Date:04 May 2017 15:10
--- NOTE | 2017-05-04 17:24 | RADRPT ---
EXAM DATE/TIME: 05/04/2017 16:17 [facility] COMPARISON: MRI BRAIN W & W/O CONTRAST, May 04, 2017, 16:17. INDICATIONS : Left sided weakness. CONTRAST: 20 cc Omniscan (gadodiamide) IV MEDICAL HISTORY : Hypertension. SURGICAL HISTORY : Fusion, lumbar. Coronary artery stent. Cholecystectomy. ENCOUNTER: Initial ACUITY: 1 day PAIN SCORE: 0/10 LOCATION: neck Percent stenosis is calculated using the diameter of the stenotic region over the diameter of the nor mal distal internal carotid artery. TECHNIQUE: Bolus infused MRA of the extracranial circulation was performed using a neurovascular coil. Post pro cessing was performed including rotating subvolume maximum intensity projections of each carotid alisha ry, rotating full volume maximum intensity projections of both carotid arteries, sagittal and coronal sliding thin slab reformations of each carotid artery, and left oblique sliding thin slab reformatio n through the aortic arch to include the origin of the arch branch vessels. FINDINGS: AORTIC ARCH: There is a three vessel origin of the great vessels from the aorta. No evidence of ostial narrowing. RIGHT CAROTID: The common carotid artery is intact. The carotid bulb has a normal configuration without ulceration or narrowing. The internal carotid artery lumen is smooth without stenosis. The external carotid ar vicente is intact. LEFT CAROTID: The common carotid artery is intact. The carotid bulb has a normal configuration without ulceration or narrowing. The internal carotid artery lumen is smooth without stenosis. The external carotid ar vicente is intact. VERTEBRALS: The vertebral arteries have a symmetric diameter. No stenotic lesions are seen. CONCLUSION: 1. Normal examination. Jose Forbes MD on May 04, 2017 at 17:21 Board Certified Radiologist. This report was verified electronically.
--- NOTE | 2017-05-04 17:27 | PD.CONS ---
History of Present Illness Service Neurology Consult Requested By medical Reason for Consult tia/stroke Primary Care Physician Chaparro Ford MD History of Present Illness 57-year-old female last normal about 1030 last night presents the emergency department for evaluation of left upper left lower extremity numbness and tingling. feels better but still feels it in her distal left ue/le extremities. takes plavix/aspirin 81mg qd. no cannon.no neck pain. no weakness. artem po. on disability. Review of Systems as above and admit hp Past Family Social History Past Medical History recent GI bleed ,cad s/p stent times 3 ,Balloon angioplasty 2 weeks ago, hypertension,hyperlipidemia Past Surgical History stent times 3.hysterectomy gallbladder Reported Medications Metoprolol Tartrate 25 Mg Tab 12.5 Mg PO BID Hydrocodone-Acetaminophen 10-325 mg Tab 1 Tab PO BID Vitamin D-1000 (Cholecalciferol) 1,000 Unit Tab 1,000 Units PO DAILY Daily Multiple Vitamin (Multiple Vitamin) 1 Tab Tab 1 Tab PO DAILY Plavix (Clopidogrel Bisulfate) 75 Mg Tab 75 Mg PO DAILY Atorvastatin (Atorvastatin Calcium) 80 Mg Tab 80 Mg PO HS Aspirin Low Dose (Aspirin) 81 Mg Chew 81 Mg CHEW DAILY Lisinopril-Hctz 20-12.5 mg Tab (Lisinopril/Hydrochlorothiazide) 20 Mg-12.5 Mg Tablet 1 Tab PO DAILY Allergies: Coded Allergies: No Known Allergies (Verified , 02/01/15) Social History no etoh/illicit drug use Review of Systems All other ROS: ROS reviewed as documented in chart Past Family Social History Allergies: Coded Allergies: No Known Allergies (Verified Allergy, Unknown, 05/04/17) Active Ordered Medications Current Medications Medications (Trade) Dose Ordered Sig/Lela Route Start Time Stop Time Status Last Admin (NS Flush) 2 ml UNSCH PRN IV FLUSH 05/04/17 09:45 (NS Flush) 2 ml BID IV FLUSH 05/04/17 21:00 (Tylenol) 650 mg Q4H PRN PO 05/04/17 09:45 05/04/17 11:22 (Narcan Inj) 0.4 mg UNSCH PRN IV PUSH 05/04/17 09:45 (Chantal-Colace) 1 tab BID PO 05/04/17 21:00 (Milk Of Magnesia Liq) 30 ml Q12H PRN PO 05/04/17 09:45 (Senokot) 17.2 mg Q12H PRN PO 05/04/17 09:45 (Dulcolax Supp) 10 mg DAILY PRN RECTAL 05/04/17 09:45 (Lactulose Liq) 30 ml DAILY PRN PO 05/04/17 09:45 (Aspirin Chew) 81 mg DAILY CHEW 05/05/17 09:00 (Lipitor) 80 mg HS PO 05/04/17 21:00 (Vitamin D3) 1,000 units DAILY PO 05/05/17 09:00 (Plavix) 75 mg DAILY PO 05/05/17 09:00 (Allen 10-325 Mg) 1 tab BID PO 05/04/17 21:00 (Lopressor) 12.5 mg BID PO 05/04/17 21:00 (Theragran) 1 tab DAILY PO 05/05/17 09:00 (Protonix) 40 mg DAILY PO 05/05/17 09:00 (Prinivil) 20 mg DAILY PO 05/05/17 09:00 (Hydrodiuril) 12.5 mg DAILY PO 05/05/17 09:00 Exam I&O / VS 05/04/17 05/04/17 05/05/17 14:59 22:59 06:59 Intake Total 480 ml Balance 480 ml Intake Oral 480 ml # Voids 2 Vital Signs Date Time Temp Pulse Resp B/P (MAP) Pulse Ox O2 Delivery O2 Flow Rate FiO2 05/04/17 12:22 20 05/04/17 12:00 97.5 52 18 165/73 (103) 97 05/04/17 08:19 58 16 152/71 (98) 98 05/04/17 08:00 96.8 56 18 177/86 (116) 96 05/04/17 07:15 Room Air 05/04/17 07:05 57 16 160/78 (105) 97 Room Air 05/04/17 06:36 56 14 137/71 (93) 98 Room Air 05/04/17 05:42 97 Room Air 05/04/17 05:42 Room Air 05/04/17 05:22 97.9 52 18 145/70 (95) 97 General: Alert and Oriented, No acute distress Eye: EOMI Respiratory: Non-labored respirations Musculoskeletal: ROM Neurologic: Alert, Oriented, Normal sensory, Normal motor, No focal defects, CN II-XII intact, Normal DTR's Psychiatric: Cooperative, Appropriate mood & affect Exam Comments ox 3, speaking on her cell phone when i arrived. obese, looks comfortable. eomi , vff, face sym, pin nml, no agraphesthesia, no drift, no ataxia, msr 2+ Review/Management Diagnosis/Plan: (1) Sensory disorder ICD Codes: R20.9 - Unspecified disturbances of skin sensation Status: Acute Plan: mri brain no acute stroke mra neck nml recs check mri cspine. if no cord compression or cord lesion, of to d/c home increase aspirin to 325mg check lipids/tsh/b12/hb1ac. if ldl>100 start statin. if hb1c elevated per medical/outpatient f/u wt loss/exercise f/u with us in 1-2 weeks (2) Hypertension ICD Codes: I10 - Hypertension Status: Chronic (3) Obesity ICD Codes: E66.9 - Obesity Status: Chronic (4) Anxiety ICD Codes: F41.9 - Anxiety Status: Chronic Tono Schmid MD May 04, 2017 17:27
--- NOTE | 2017-05-04 17:28 | RADRPT ---
EXAM DATE/TIME: 05/04/2017 16:17 [facility] COMPARISON: No previous studies available for comparison. INDICATIONS : Left sided weakness. CONTRAST: 20 cc Omniscan (gadodiamide) IV MEDICAL HISTORY : Hypertension. SURGICAL HISTORY : Coronary artery stent. Fusion, lumbar. Cholecystectomy. ENCOUNTER: Initial ACUITY: 1 day PAIN SCORE: 0/10 LOCATION: cranial TECHNIQUE: Multiplanar, multisequence MRI of the brain was performed both prior to and following the administrat ion of paramagnetic contrast. FINDINGS: CEREBRUM: The ventricles are normal for age. No evidence of midline shift, mass lesion, hemorrhage or acute in farction. No extraaxial fluid collections are seen. The pituitary gland and suprasellar cistern are normal in configuration. WHITE MATTER: No significant signal abnormalities are seen in the white matter. POSTERIOR FOSSA: The cerebellum and brainstem are intact. The 4th ventricle is midline. The cerebellopontine angle is unremarkable. The cerebellar tonsils are normal in position. DIFFUSION IMAGING: No focal areas of restricted diffusion are seen. No evidence of acute infarction. EXTRACRANIAL: The visualized portions of the orbits and paranasal sinuses are unremarkable. POST-CONTRAST: No abnormal areas of parenchymal or dural enhancement. No evidence of blood-brain barrier breakdown. CONCLUSION: 1. No acute intercranial abnormality evident. Jose Forbes MD on May 04, 2017 at 17:22 Board Certified Radiologist. This report was verified electronically.
[2017-05-04] MEDS ORDERED: GADODIAMIDE PF 287 MG/ML 20 ML VIAL (for RAD MRI) IVCONTRAST ONE (17:46)
[2017-05-04] MEDS: ACETAMINOPHEN/HYDROcodone 325 MG/10 MG TAB PO SCH (20:45)
[2017-05-04] MEDS: METOPROLOL TARTRATE 25 MG TAB PO SCH (20:45)
[2017-05-04] MEDS: DOCUSATE SODIUM 50 MG/SENNA 8.6 MG TAB PO SCH (20:46)
[2017-05-04] MEDS: ATORVASTATIN 40 MG TAB PO SCH (20:46)
[2017-05-04] MEDS: SODIUM CHLORIDE 0.9% FLUSH 10 ML FLUSH IV FLUSH SCH (20:48)
[2017-05-04] MEDS: ONDANSETRON HCL 4 MG/2 ML VIAL IV PUSH PRN (21:49)
[2017-05-05] VITALS (8 sets, daily range): BP systolic 94–137; BP diastolic 51–70; PULSE 54–91; RESP 16–20; TEMP 96.7–98; O2SAT 93–97
[2017-05-05 00:30] LABS: CHOLESTEROL 136 MG/DL (120-200); TRIGLYCERIDES 68 MG/DL (42-150)
[2017-05-05 00:55] LABS: CHOLESTEROL/ HDL RATIO 2.18 RATIO; HDL CHOLESTEROL 62.2 MG/DL (40.0-60.0); LDL CHOLESTEROL 60 MG/DL (0-99)
--- NOTE | 2017-05-05 07:37 | HHI.PR ---
Subjective Remarks Still having some tingling in left upper and lower extremity but overall improved. Strength seems to be improved. Objective Vitals Vital Signs Date Time Temp Pulse Resp B/P (MAP) Pulse Ox O2 Delivery O2 Flow Rate FiO2 05/05/17 04:00 97.1 54 20 118/70 (86) 97 05/05/17 00:21 98.0 91 16 127/58 (81) 97 05/04/17 20:28 98.8 51 16 144/68 (93) 95 05/04/17 16:00 98.0 54 20 139/65 (89) 96 05/04/17 12:22 20 05/04/17 12:00 97.5 52 18 165/73 (103) 97 05/04/17 08:19 58 16 152/71 (98) 98 05/04/17 08:00 96.8 56 18 177/86 (116) 96 GENERAL: Obese, sleeping, arouses to voice. Alert and oriented. No acute distress. Cooperative. SKIN: Warm and dry. HEAD: Normocephalic. EYES: No scleral icterus. No injection or drainage. NECK: Supple, trachea midline. No JVD or lymphadenopathy. CARDIOVASCULAR: Regular rate and rhythm without murmurs, gallops, or rubs. RESPIRATORY: Breath sounds equal bilaterally. No accessory muscle use. GASTROINTESTINAL: Abdomen soft, non-tender, nondistended. Bowel sounds normal. MUSCULOSKELETAL: No cyanosis, or edema. Strength 5 out of 5 bilateral lower extremities and right upper extremity. 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 BACK: No CVA tenderness. Result Diagram: 05/04/17 0555 05/04/17 0555 Imaging Last [address] 05/04/17 0540 Signed Impressions: Service Date/Time: Thursday, May 04, 2017 06:16 - CONCLUSION: 1. Mild chronic sinusitis in the right maxillary antra. 2. Otherwise negative. Demario Daley MD Urinary Catheter: No Vascular Central Line Catheter: No A/P Problem List: (1) Paresthesia ICD Codes: R20.2 - Paresthesia of skin Status: Acute Plan: No overt signs of stroke on imaging. She has some persistent reported paresthesias on the left upper and lower extremities. MRI of C-spine pending. Appreciate neurology input. Strength seems relatively symmetric with questionable diminution of left hand display director but I am not sure of her baseline and she is right-hand dominant. Hopefully discharge home later today. (2) GI (gastrointestinal bleed) ICD Codes: K92.2 - Gastrointestinal hemorrhage, unspecified Plan: recent gi bleed will observe add protonix po if any further bleeding will need to see GI does have outpatient appt next week follow CBC (3) CAD (coronary artery disease) ICD Codes: I25.9 - CAD (coronary artery disease) Status: Chronic Plan: Has been relatively stable however when I went back into the room to reassess the patient she reported that she had some sharp chest pain in her left lower chest. Denied any radiation of pain to his "sharp". She has also had some nausea. Given her history we will check an EKG presently. I reviewed outpatient records and found that she just had a heart catheterization with balloon angioplasty done April 06 of this year. She was to start Ranexa however the medication was too expensive. She had to stop her isosorbide due to headaches. She reports that her current sharp chest pain is different than her usual pain associated with her coronary disease which is a more dull achy type pain. We will check an EKG and continue to monitor. Unlikely we would do further significant intervention given recent heart catheterization and Dr. Recio's notes regarding very small diagonal branch vessel as likely source of any coronary pain. (4) Hypertension ICD Codes: I10 - Hypertension Status: Chronic Plan: BP stable continue home med Discharge Planning Likely discharge home later today depending on her progress and evolution of current "chest pain" Jermaine Garcia MD PhD May 05, 2017 07:37
[2017-05-05] MEDS: ONDANSETRON HCL 4 MG/2 ML VIAL IV PUSH PRN ×2 (07:43→16:17)
[2017-05-05] MEDS ORDERED: LISINOPRIL PO SCH (09:00)
[2017-05-05] MEDS: SODIUM CHLORIDE 0.9% FLUSH 10 ML FLUSH IV FLUSH SCH ×2 (09:00→22:07)
[2017-05-05] MEDS: DOCUSATE SODIUM 50 MG/SENNA 8.6 MG TAB PO SCH ×2 (09:00→22:03)
[2017-05-05] MEDS ORDERED: [UNRECOGNIZED DRUG - OTHER] PO SCH (09:00)
[2017-05-05] MEDS ORDERED: ASPIRIN 81 MG CHEW TAB CHEW SCH (09:00)
[2017-05-05] MEDS ORDERED: HYDROCHLOROTHIAZIDE PO SCH (09:00)
[2017-05-05] MEDS ORDERED: ASPIRIN 325 MG TAB PO SCH (09:00)
[2017-05-05 09:01] LABS: WHITE BLOOD COUNT 5.5 TH/MM3 (4.0-11.0)
[2017-05-05 09:02] LABS: AUTOMATED NEUTROPHIL # 2.2 TH/MM3 (1.8-7.7); BASOPHIL % 0.7 % (0.0-2.0); EOSINOPHIL # 0.2 TH/MM3 (0-0.4); EOSINOPHIL % 2.8 % (0.0-4.0); HEMATOCRIT 39.9 % (35.0-46.0); HEMOGLOBIN 13.1 GM/DL (11.6-15.3); LYMPH % 45.2 % (9.0-44.0); LYMPHOCYTE # 2.5 TH/MM3 (1.0-4.8); MEAN CELL VOLUME 91.2 FL (80.0-100.0); MEAN CORPUSCULAR HEMOGLOBIN 30.1 PG (27.0-34.0); MONO % 11.2 % (0.0-8.0); MONOCYTE # 0.6 TH/MM3 (0-0.9); NEUT % 40.1 % (16.0-70.0); PLATELET COUNT 185 TH/MM3 (150-450); RED BLOOD COUNT 4.38 MIL/MM3 (4.00-5.30); RED CELL DISTRIBUTION WIDTH 12.2 % (11.6-17.2)
--- NOTE | 2017-05-05 10:32 | RADRPT ---
EXAM DATE/TIME: 05/05/2017 10:01 [facility] COMPARISON: No previous studies available for comparison. INDICATIONS : Myelopathy. Left side weakness. MEDICAL HISTORY : Hypertension. SURGICAL HISTORY : Fusion, lumbar. Cholecystectomy. Coronary artery stent. ENCOUNTER: Initial ACUITY: 1 day PAIN SCORE: 0/10 LOCATION: [facility] TECHNIQUE: Multiplanar, multisequence MRI examination of the cervical spine was performed. FINDINGS: VERTEBRAE: Normal vertebral body height. Homogeneous marrow signal. ALIGNMENT: No evidence of subluxation. CORD: Normal configuration and signal. POST FOSSA: The cerebellar tonsils are normal in position. C2-C3: The thecal sac has a normal configuration. There is no evidence of disc herniation or spinal canal s tenosis. The neural foramina are patent bilaterally. C3-C4: Broad-based posterior disc osteophyte complex. Mild uncovertebral joint hypertrophy and mild bilatera l neuroforaminal narrowing. There is abutment of the posterior disc along the anterior aspect of the cord without significant cord displacement. C4-C5: Broad-based posterior disc osteophyte complex which abuts the anterior aspect of the cord and causes mild cord effacement. There is moderate narrowing of the spinal canal in AP dimension. Mild bilateral neural foraminal narrowing is present. C5-C6: The thecal sac has a normal configuration. There is no evidence of disc herniation or spinal canal s tenosis. The neural foramina are patent bilaterally. C6-C7: Minimal posterior disc osteophyte complex. No significant narrowing of the spinal canal or neural for imelda. C7-T1: The thecal sac has a normal configuration. There is no evidence of disc herniation or spinal canal s tenosis. The neural foramina are patent bilaterally. CONCLUSION: There is no abnormal signal identified within the spinal cord. However, the degenerative changes seen at C3/C4 and most significantly at C4/C5 cause effacement of the cord and narrowing of the spinal ca nal. Mild bilateral foraminal narrowing is seen of both leads levels.. Sarah Mayer MD on May 05, 2017 at 10:27 Board Certified Radiologist. This report was verified electronically.
[2017-05-05] MEDS: NITROGLYCERIN 0.1 MG/HR PATCH T-DERMAL SCH (10:35)
[2017-05-05] MEDS: ACETAMINOPHEN/HYDROcodone 325 MG/10 MG TAB PO SCH ×2 (10:36→22:16)
[2017-05-05] MEDS: ASPIRIN 325 MG TAB PO SCH (10:36)
[2017-05-05] MEDS: MULTIVITAMIN TAB PO SCH (10:36)
[2017-05-05] MEDS: PANTOPRAZOLE SOD 40 MG DELAYED RELEASE TAB PO SCH (10:36)
[2017-05-05] MEDS: HYDROCHLOROTHIAZIDE 25 MG TAB PO SCH (10:37)
[2017-05-05] MEDS: CLOPIDOGREL 75 MG TAB PO SCH (10:37)
[2017-05-05] MEDS: CHOLECALCIFEROL (VIT D3) 1000 UNIT TAB PO SCH (10:37)
[2017-05-05] MEDS: METOPROLOL TARTRATE 25 MG TAB PO SCH ×2 (10:38→22:16)
[2017-05-05] MEDS: LISINOPRIL 20 MG TAB PO SCH (10:38)
[2017-05-05 13:53] LABS: HEMOGLOBIN A1C 5.8 % (4.3-6.0)
--- NOTE | 2017-05-05 17:41 | HHI.PR ---
Addendum to Inpatient Note Addendum Reason: Additional Documentation Additional Information Came by to evaluate patient again in hopes of discharging her home today. She reports she has had no more chest pain, but reports 4 episodes of diarrhea yesterday and approximately 6 episodes of loose brown watery stool today. It is noted that she was started on a Zithromax last week and completed 3 day course of that before her admission yesterday. I advised that she likely does not have C. difficile given the timeline of antibiotic exposure, the type of antibiotic use and her normal white blood cell count. However, C. difficile toxin was tested on the most recent loose stool and is pending. We will try cholestyramine and hope to get her out of the hospital tomorrow morning. Jermaine Garcia MD PhD May 05, 2017 17:41
--- NOTE | 2017-05-05 18:19 | EKG ---
Date Performed: 05/05/2017 Time Performed: 11:42:00 PTAGE: 57 years EKG: SINUS BRADYCARDIA NONSPECIFIC T-WAVE ABNORMALITY ABNORMAL ECG Compared to PREVIOUS TRACING , no change. PREVIOUS TRACIN05/04/2017 05.47 DOCTOR: Chaparro Zhao Interpretating Date/Time 05/05/2017 18:17:21
[2017-05-05] MEDS ORDERED: REMOVE OLD NICODERM (NICOTINE) PATCH T-DERMAL SCH (21:00)
[2017-05-05] MEDS: CHOLESTYRAMINE 4 GM PACKET PO SCH (22:22)
[2017-05-05] MEDS: ATORVASTATIN 40 MG TAB PO SCH (22:23)
[2017-05-06 00:06] VITALS: BP 122/56; PULSE 59; RESP 18; TEMP 98; O2SAT 94
[2017-05-06 03:11] VITALS: BP 110/59; PULSE 58; RESP 16; TEMP 97.8; O2SAT 95
[2017-05-06 08:00] VITALS: BP 127/59; PULSE 59; RESP 16; TEMP 97.8; O2SAT 97
--- NOTE | 2017-05-06 08:03 | HHI.PR ---
Subjective Remarks Overall feeling better. Had several loose stools yesterday but last bowel movement was around 11 PM last night. Tolerating oral intake. Still some paresthesias in the left upper extremity but strength seems to have improved. Reviewed imaging studies with patient. C. difficile toxin negative. Objective Vitals Vital Signs Date Time Temp Pulse Resp B/P (MAP) Pulse Ox O2 Delivery O2 Flow Rate FiO2 05/06/17 03:11 97.8 58 16 110/59 (76) 95 05/06/17 00:06 98.0 59 18 122/56 (78) 94 05/05/17 20:56 97.9 57 16 94/51 (65) 93 05/05/17 20:20 58 05/05/17 18:36 96.7 58 16 106/60 (75) 94 05/05/17 12:00 97.7 58 20 137/64 (88) 95 05/05/17 11:36 18 05/05/17 09:40 59 119/62 (81) 05/05/17 08:00 97.6 62 20 107/65 (79) 96 GENERAL: Sleeping, arouses to voice, alert and oriented. No acute distress. SKIN: Warm and dry. HEAD: Normocephalic. EYES: No scleral icterus. No injection or drainage. NECK: Supple, trachea midline. No JVD or lymphadenopathy. CARDIOVASCULAR: Regular rate and rhythm without murmurs, gallops, or rubs. Rate in the upper 50s-60s on my exam. RESPIRATORY: Breath sounds equal bilaterally. No accessory muscle use. GASTROINTESTINAL: Abdomen soft, non-tender, nondistended. MUSCULOSKELETAL: No cyanosis, or edema. Moves all extremities well. Minimal if any weakness in left upper extremity. BACK: No CVA tenderness. Result Diagram: 05/05/17 0852 05/04/17 0555 Imaging Last [address] 05/04/17 0540 Signed Impressions: Service Date/Time: Thursday, May 04, 2017 06:16 - CONCLUSION: 1. Mild chronic sinusitis in the right maxillary antra. 2. Otherwise negative. Demario Daley MD Urinary Catheter: No Vascular Central Line Catheter: No A/P Problem List: (1) Paresthesia ICD Codes: R20.2 - Paresthesia of skin Status: Acute Plan: No overt signs of stroke on imaging. She has some persistent reported paresthesias on the left upper and lower extremities. MRI of C-spine noted. Appreciate neurology input. May benefit from EMG as outpatient. 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 Hopefully discharge home later today. (2) GI (gastrointestinal bleed) ICD Codes: K92.2 - Gastrointestinal hemorrhage, unspecified Plan: recent gi bleed recently. Hemoglobin stable. Add protonix po. She did have several loose stools with no more blood noted per her report. C. difficile toxin negative. Diarrhea likely associated with recent azithromycin use. (3) CAD (coronary artery disease) ICD Codes: I25.9 - CAD (coronary artery disease) Status: Chronic Plan: Patient had episode of sharp chest pain yesterday which resolved with Zofran. No more chest pain. Given her recurrent chest pain and recent heart catheterization 2 within the last 3 months, I will use topical Nitro-Dur which seems to have helped with her chest pain as well. EKG with no acute changes. Does not appear that she will be able to tolerate even the low-dose metoprolol given her bradycardia and low BP at times so we will have to hold that. (4) Hypertension ICD Codes: I10 - Hypertension Status: Chronic Plan: BP stable continue home med Discharge Planning discharge home later today Jermaine Garcia MD PhD May 06, 2017 08:03
[2017-05-06] MEDS ORDERED: PANT40TA3 PO (08:07)
[2017-05-06] MEDS ORDERED: NITR1PAT T-DERMAL (08:07)
[2017-05-06] MEDS ORDERED: CHOL4POW4 PO (08:07)
--- NOTE | 2017-05-06 08:12 | HHI.DS ---
Discharge Summary Admission Date May 04, 2017 at 07:09 Discharge Date: May 06, 2017 Admitting Diagnosis Subacute right hemisphere stroke. (1) Paresthesia Diagnosis: Principal ICD Codes: R20.2 - Paresthesia of skin Status: Acute (2) GI (gastrointestinal bleed) Diagnosis: Secondary ICD Codes: K92.2 - Gastrointestinal hemorrhage, unspecified (3) CAD (coronary artery disease) Diagnosis: Secondary ICD Codes: I25.9 - CAD (coronary artery disease) Status: Chronic (4) Hypertension Diagnosis: Secondary ICD Codes: I10 - Hypertension Status: Chronic [facility], Dr. Schmid Brief History Patient 57-year-old female last normal about 1030 evening before admission presents the emergency department for evaluation of left upper left lower extremity numbness and tingling weakness in a foggy feeling in her head. Patient states she awoke about 1 00 in the morning with these symptoms, she did not think anything of them and was able to go back to sleep. She woke up again at about 430 and still with the symptoms she decided to come in and be seen. States that she is on "blood thinners" but states that she is on a medication for the stents in her heart. States symptoms have been constant ever since she woke up about 2:00 this morning. She denies any chest pain shortness of breath abdominal pain nausea or vomiting. Patient is on plavix and baby aspirin . Patient with recent GI bleed and has GI appt today with possible endo and colonoscopy next week. Patient speech normal . CBC/BMP: 05/05/17 0852 05/04/17 0555 Significant Findings Laboratory Tests Test 05/04/17 05:55 05/04/17 09:00 05/05/17 08:52 05/05/17 13:30 Blood Urea Nitrogen 22 MG/DL (7-18) Random Glucose 108 MG/DL (74-106) Albumin 3.2 GM/DL (3.4-5.0) Calcium Level 8.3 MG/DL (8.5-10.1) Alkaline Phosphatase 122 U/L (45-117) Total Bilirubin LESS THAN 0.1 MG/DL Estimat Glomerular Filtration Rate 73 ML/MIN (>89) Troponin I LESS THAN 0.02 NG/ML HDL Cholesterol 62.2 MG/DL (40.0-60.0) Lymphocytes (%) (Auto) 45.2 % (9.0-44.0) Monocytes (%) (Auto) 11.2 % (0.0-8.0) Imaging Last Impressions Cervical Spine MRI 05/05/17 0000 Signed Impressions: Service Date/Time: Friday, May 05, 2017 10:01 - CONCLUSION: There is no abnormal signal identified within the spinal cord. However, the degenerative changes seen at C3/C4 and most significantly at C4/C5 cause effacement of the cord and narrowing of the spinal canal. Mild bilateral foraminal narrowing is seen of both leads levels.. Sarah Mayer MD Head CT 05/04/17 0540 Signed Impressions: Service Date/Time: Thursday, May 04, 2017 06:16 - CONCLUSION: 1. Mild chronic sinusitis in the right maxillary antra. 2. Otherwise negative. Demario Daley MD Neck Magnetic Resonance Angiography 05/04/17 0000 Signed Impressions: Service Date/Time: Thursday, May 04, 2017 16:17 - CONCLUSION: 1. Normal examination. Jose Forbes MD Brain MRI 05/04/17 0000 Signed Impressions: Service Date/Time: Thursday, May 04, 2017 16:17 - CONCLUSION: 1. No acute intercranial abnormality evident. Jose Forbes MD Hospital Course Admitted for left upper extremity and left lower extremity paresthesias with some report of left upper extremity weakness. Thought was that she may have TIA or possible even CVA. Imaging was all unremarkable with exception of cervical spine MRI which revealed some degenerative changes and flattening of cord which could produce some of the paresthesias she had reported. She was evaluated by Dr. Schmid from neurology and has been cleared for discharge from neurologic standpoint. She may benefit from EMG as an outpatient. I have instructed her to avoid compressive forces to her neck. While in the hospital patient had several episodes of loose watery brown stool. C. difficile toxin was negative. It is noted that she was on azithromycin for 3 days prior to admission which could have contributed to her diarrheal illness. She also had reported bright red blood per rectum on one occasion however her hemoglobin remained stable and she had no more episodes of blood in the stool. She is due for follow-up with her GI doctor and has an upcoming appointment for colonoscopy she reports. Additionally patient has long history of recurrent chest pain and has some coronary disease noted and very small branch vessel per heart cath reports from February and March of this year. She had one episode of sharp chest pain here which she describes as different than her usual chest pain. Chest pain here was relieved with Zofran. She had been placed on Ranexa by her post form remover but says this culture $700 a month and she cannot afford this. She cannot tolerate isosorbide due to headaches. I placed her on a low-dose Nitro-Dur patch which she tolerated quite well here. We will continue that as an outpatient. Will not be able to continue her metoprolol due to her intermittent low blood pressure and baseline bradycardia. Pt Condition on Discharge: Stable Discharge Disposition: Discharge Home Discharge Instructions DIET: Follow Instructions for: Heart Healthy Diet Speech Therapy-Diet Recommends: Regular Activities you can perform: Weight Bearing as Silvia Other Activity Instructions: Start activity slowly and advance as tolerated. Avoid compressive forces to cervical spine. Follow up Referrals: Neurology PCP Follow-up New Medications: Cholestyramine (Cholestyramine) 4 Gm/Pkt Powd 4 GM PO Q12HR for Diarrhea for 10 Days, #1 CONTAINER 1 packet contains 4 grams of cholestyramine. Nitroglycerin (Nitroglycerin Patch) 0.1 Mg/Hour Patch.td24 1 PATCH T-DERMAL DAILY for Angina, #31 PATCH Leave patch in place for 12 hrs each day, then remove for 12 hrs Pantoprazole (Pantoprazole) 40 Mg Tab 40 MG PO DAILY for GERD, #31 TAB Continued Medications: Aspirin (Aspirin Low Dose) 81 Mg Chew 81 MG CHEW DAILY, TAB 0 Refills Atorvastatin (Atorvastatin) 80 Mg Tab 80 MG PO HS for Cholesterol Management, #30 TAB 0 Refills Cholecalciferol (Vitamin D-1000) 1,000 Unit Tab 1000 UNITS PO DAILY for Nutritional Supplement, #1 BOTTLE 0 Refills Clopidogrel (Plavix) 75 Mg Tab 75 MG PO DAILY for Blood Clot Prevention, #30 TAB 0 Refills Hydrocodone-Acetaminophen (Hydrocodone-Acetaminophen) 10-325 mg Tab 1 TAB PO BID, TAB 0 Refills Lisinopril/Hydrochlorothiazide (Lisinopril-Hctz 20-12.5 mg Tab) 20 Mg-12.5 Mg Tablet 1 TAB PO DAILY Multiple Vitamin (Daily Multiple Vitamin) 1 Tab Tab 1 TAB PO DAILY Discontinued Medications: Guaifenesin-Codeine Liq (Guaifenesin AC Liq) 100-10 Mg/5 Ml Syrp 10 ML PO Q4H PRN for COUGH, #1 BOTTLE 0 Refills Metoprolol Tartrate (Metoprolol Tartrate) 25 Mg Tab 12.5 MG PO BID, #60 TAB 0 Refills Jermaine Garcia MD PhD May 06, 2017 08:12
[2017-05-06] MEDS: NITROGLYCERIN 0.1 MG/HR PATCH T-DERMAL SCH (09:00)
[2017-05-06] MEDS: HYDROCHLOROTHIAZIDE 25 MG TAB PO SCH (09:23)
[2017-05-06] MEDS: ACETAMINOPHEN/HYDROcodone 325 MG/10 MG TAB PO SCH (09:23)
[2017-05-06] MEDS: CHOLESTYRAMINE 4 GM PACKET PO SCH (09:23)
[2017-05-06] MEDS: ASPIRIN 325 MG TAB PO SCH (09:23)
[2017-05-06] MEDS: DOCUSATE SODIUM 50 MG/SENNA 8.6 MG TAB PO SCH (09:23)
[2017-05-06] MEDS: CLOPIDOGREL 75 MG TAB PO SCH (09:24)
[2017-05-06] MEDS: METOPROLOL TARTRATE 25 MG TAB PO SCH (09:24)
[2017-05-06] MEDS: PANTOPRAZOLE SOD 40 MG DELAYED RELEASE TAB PO SCH (09:24)
[2017-05-06] MEDS: LISINOPRIL 20 MG TAB PO SCH (09:24)
[2017-05-06] MEDS: CHOLECALCIFEROL (VIT D3) 1000 UNIT TAB PO SCH (09:24)
[2017-05-06] MEDS: SODIUM CHLORIDE 0.9% FLUSH 10 ML FLUSH IV FLUSH SCH (09:24)
[2017-05-06] MEDS: MULTIVITAMIN TAB PO SCH (09:24)
[2017-05-06 12:00] VITALS: BP 104/58; PULSE 55; RESP 16; TEMP 98.1; O2SAT 97
[2017-05-06] MEDS: ONDANSETRON HCL 4 MG/2 ML VIAL IV PUSH PRN (16:33)
== END 2017-05-06 18:30 | disposition home or self-care (01) | DRG 552 ==
LOC: PHED 05:13 → PHEDA 07:09 → PH3A 08:11 → PH3B 05-05 13:23
PROVIDERS: ADMIT Internal Medicine; ATTEND Internal Medicine
DX: M47.892 Other spondylosis, cervical region (principal); E66.01 Morbid (severe) obesity due to excess calories; I10 Essential (primary) hypertension; K92.1 Melena; R20.2 Paresthesia of skin; R07.9 Chest pain, unspecified; E78.5 Hyperlipidemia, unspecified; I25.10 Atherosclerotic heart disease of native coronary artery without angina pectoris; R19.7 Diarrhea, unspecified; R00.1 Bradycardia, unspecified; F41.9 Anxiety disorder, unspecified; Z68.39 Body mass index [BMI] 39.0-39.9, adult; Z95.5 Presence of coronary angioplasty implant and graft
CPT/HCPCS: 70450; 70548; 70553; 72141; 80053; 80061; 81001; 82607; 83036; 84443; 84484; 85025; 85610; 85730; 87493; 93005; 93306; 99285; A9579; J2405

== ENCOUNTER 2017-06-03 10:19 | Emergency (ER) | payer OTHER ==
[~2017-06-03] VITALS: Ht 160 cm; Wt 109.0 kg
[~2017-06-03 10:19] MED LIST changes: +CHOL4POW4 PO; -GUAISYP4 PO; -ISOS60TA PO; +NITR1PAT T-DERMAL; +PANT40TA3 PO
[2017-06-03 10:20] VITALS: BP 148/78; PULSE 61; RESP 17; TEMP 98.6; O2SAT 97
[2017-06-03] MEDS ORDERED: AMLO10TA2 PO (10:37)
--- NOTE | 2017-06-03 11:28 | PD ---
HPI Chief Complaint: Numbness/Tingling Time Seen by Provider: 11:00 Travel History International Travel<30 days: No Contact w/Intl Traveler<30days: No Traveled to known affect area: No History of Present Illness HPI This patient was admitted last month for paresthesias in the left arm and leg. She had extensive workup with MRIs of brain and C-spine and neurology consultation. She is seen the neurologist twice since leaving the hospital including 5 days ago. Her neurologist is Dr. Schmid. Patient came to the ER today for the same tingling sensation in left arm and left leg. There is no sensory loss or muscle weakness or speech slurring or headache. She is just frustrated by the persistence of the symptoms but does not seem to be anything new going on. Symptom severity is mild. No alleviating factors. No exacerbating factors. Duration 1 month. PFSH Past Medical History Arthritis: No Asthma: No Atrial Fibrillation: Yes Autoimmune Disease: No Blood Disorders: No Anxiety: Yes Depression: No Heart Rhythm Problems: Yes (hx of A-Fib and palpatations) Cancer: No Cardiac Catheterization: Yes Cardiovascular Problems: Yes (HTN, high chol, CAD with 3 stents ) High Cholesterol: Yes Chemotherapy: No Chest Pain: Yes Congestive Heart Failure: No COPD: No Cerebrovascular Accident: Yes (possible TIA) Coronary Artery Disease: Yes Diabetes: No Diminished Hearing: No Endocrine: No Gastrointestinal Disorders: Yes GERD: No Glaucoma: No Genitourinary: No Headaches: No Hepatitis: No Hiatal Hernia: No Heparin Induced Thrombocytopen: No Hypertension: Yes Immune Disorder: No Kidney Stones: No Musculoskeletal: Yes Neurologic: Yes Psychiatric: No Reproductive: No Respiratory: No Immunizations Current: No Migraines: No Myocardial Infarction: No Radiation Therapy: No Renal Failure: No Seizures: No Sickle Cell Disease: No Sleep Apnea: No Thyroid Disease: No Ulcer: No Tetanus Vaccination: < 5 Years Influenza Vaccination: No : 6 Para: 4 : 2 Past Surgical History Abdominal Surgery: Yes (gallbladder removed and hysterectomy) AICD: No Appendectomy: No Arteriovenous Shunt: No Cardiac Surgery: Yes (3 stents and balloon angioplasty ) Cholecystectomy: Yes (1998) Coronary Artery Bypass Graft: No Coronary Stent: Yes (X3) Ear Surgery: No Endocrine Surgery: No Eye Surgery: No Genitourinary Surgery: No Gynecologic Surgery: Yes (ROCIO/BSO) Hysterectomy: Yes Insulin Pump: No Joint Replacement: No Oral Surgery: No Pacemaker: No Thoracic Surgery: Yes (fusion L4 and L5) Other Surgery: Yes Social History Alcohol Use: No Tobacco Use: No Substance Use: No Allergies-Medications (Allergen,Severity, Reaction): Coded Allergies: No Known Allergies (Verified Allergy, Unknown, 05/04/17) Reported Meds & Prescriptions Reported Meds & Active Scripts Active Pantoprazole (Pantoprazole Sodium) 40 Mg Tab 40 Mg PO DAILY Reported Amlodipine (Amlodipine Besylate) 10 Mg Tab 10 Mg PO DAILY Hydrocodone-Acetaminophen 10-325 mg Tab 1 Tab PO BID Daily Multiple Vitamin (Multiple Vitamin) 1 Tab Tab 1 Tab PO DAILY Plavix (Clopidogrel Bisulfate) 75 Mg Tab 75 Mg PO DAILY Atorvastatin (Atorvastatin Calcium) 80 Mg Tab 80 Mg PO HS Aspirin Low Dose (Aspirin) 81 Mg Chew 81 Mg CHEW DAILY Review of Systems General / Constitutional: No: Fever Eyes: No: Visual changes HENT: No: Headaches Cardiovascular: No: Chest Pain or Discomfort Respiratory: No: Shortness of Breath Gastrointestinal: No: Abdominal Pain Genitourinary: No: Dysuria Musculoskeletal: No: Pain Skin: No Rash Neurologic: Positive: Paresthesia, No: Weakness Psychiatric: No: Depression Endocrine: No: Polydipsia Hematologic/Lymphatic: No: Easy Bruising Physical Exam Narrative GENERAL: Well-nourished, well-developed patient in no apparent distress. SKIN: Focused skin assessment reveals no rash and nodules. Skin is Warm and dry. HEAD: Atraumatic. Normocephalic. EYES: Pupils equal and round. No scleral icterus. No injection or drainage. ENT: No nasal bleeding or discharge. Mucous membranes pink and moist. NECK: Trachea midline. No JVD. CARDIOVASCULAR: Regular rate and rhythm. No murmur appreciated. RESPIRATORY: No accessory muscle use. Clear to auscultation. Breath sounds equal bilaterally. GASTROINTESTINAL: Abdomen soft, non-tender, nondistended. Hepatic and splenic margins not palpable. MUSCULOSKELETAL: No obvious deformities. No clubbing. No cyanosis. No edema. NEUROLOGICAL: Awake and alert. No obvious cranial nerve deficits. Motor grossly within normal limits. Normal speech. Sensation subjectively intact PSYCHIATRIC: Appropriate mood and affect; insight and judgment normal. Data Data Last Documented VS Vital Signs Date Time Temp Pulse Resp B/P (MAP) Pulse Ox O2 Delivery O2 Flow Rate FiO2 06/03/17 14:47 59 16 129/56 (80) 96 Room Air 06/03/17 10:20 98.6 Orders Orders Mri C Spine W/O Contrast (06/03/17 ) Mri Brain W/O Contrast (06/03/17 ) Complete Blood Count With Diff (06/03/17 11:54) Basic Metabolic Panel (Bmp) (06/03/17 11:54) Prothrombin Time / Inr (Pt) (06/03/17 11:54) Act Partial Throm Time (Ptt) (06/03/17 11:54) Iv Access Insert/Monitor (06/03/17 11:54) Labs Laboratory Tests Test 06/03/17 10:25 White Blood Count 5.4 TH/MM3 Red Blood Count 4.04 MIL/MM3 Hemoglobin 12.1 GM/DL Hematocrit 36.7 % Mean Corpuscular Volume 90.7 FL Mean Corpuscular Hemoglobin 29.8 PG Mean Corpuscular Hemoglobin Concent 32.9 % Red Cell Distribution Width 12.4 % Platelet Count 178 TH/MM3 Mean Platelet Volume 9.6 FL Neutrophils (%) (Auto) 44.3 % Lymphocytes (%) (Auto) 47.0 % Monocytes (%) (Auto) 5.4 % Eosinophils (%) (Auto) 2.0 % Basophils (%) (Auto) 1.3 % Neutrophils # (Auto) 2.4 TH/MM3 Lymphocytes # (Auto) 2.5 TH/MM3 Monocytes # (Auto) 0.3 TH/MM3 Eosinophils # (Auto) 0.1 TH/MM3 Basophils # (Auto) 0.1 TH/MM3 CBC Comment DIFF FINAL Differential Comment Prothrombin Time 10.0 SEC Prothromb Time International Ratio 1.0 RATIO Activated Partial Thromboplast Time 26.6 SEC Blood Urea Nitrogen 14 MG/DL Creatinine 1.10 MG/DL Random Glucose 95 MG/DL Calcium Level 9.3 MG/DL Sodium Level 139 MEQ/L Potassium Level 3.7 MEQ/L Chloride Level 106 MEQ/L Carbon Dioxide Level 25.2 MEQ/L Anion Gap 8 MEQ/L Estimat Glomerular Filtration Rate 62 ML/MIN MDM Medical Decision Making Medical Screen Exam Complete: Yes Emergency Medical Condition: Yes Medical Record Reviewed: Yes Differential Diagnosis Paresthesia, peripheral neuropathy, cord compression Narrative Course I have reviewed the patient's electronic medical record. Reviewed her recent hospital stay and extensive imaging survey and neurology consultation Patient seems to have the same thing going on. I do not see any objective neurologic deficit. She had recent extensive workup. I placed a call to her neurologist to discuss. I reviewed in detail with Dr. Schmid. He wants emergency room brain and cervical spine MRIs repeated now. I have ordered them. MRI of the brain shows nothing acute MRI of the C-spine shows some changes as noted. However these were findings already noted a month ago. Stable for outpatient follow-up Diagnosis Primary Impression: Arm paresthesia, left Additional Impression: Paresthesia of left leg Additional Instructions: The patient was advised to follow up with their physician and return if they worsen. Med/Other Pt SpecificInfo: Other Disposition: 01 DISCHARGE HOME Condition: Stable Phuc Zamudio MD Jun 03, 2017 11:28
[2017-06-03 12:09] LABS: AUTOMATED NEUTROPHIL # 2.4 TH/MM3 (1.8-7.7); BASOPHIL # 0.1 TH/MM3 (0-0.2); BASOPHIL % 1.3 % (0.0-2.0); EOSINOPHIL # 0.1 TH/MM3 (0-0.4); HEMATOCRIT 36.7 % (35.0-46.0); HEMOGLOBIN 12.1 GM/DL (11.6-15.3); LYMPHOCYTE # 2.5 TH/MM3 (1.0-4.8); MEAN CELL VOLUME 90.7 FL (80.0-100.0); MEAN CORPUSCULAR HEMOGLOBIN 29.8 PG (27.0-34.0); MEAN CORPUSCULAR HGB CONC 32.9 % (32.0-36.0); MEAN PLATELET VOLUME 9.6 FL (7.0-11.0); MONO % 5.4 % (0.0-8.0); MONOCYTE # 0.3 TH/MM3 (0-0.9); NEUT % 44.3 % (16.0-70.0); PLATELET COUNT 178 TH/MM3 (150-450); RED BLOOD COUNT 4.04 MIL/MM3 (4.00-5.30); RED CELL DISTRIBUTION WIDTH 12.4 % (11.6-17.2); WHITE BLOOD COUNT 5.4 TH/MM3 (4.0-11.0)
[2017-06-03 12:20] LABS: CALCIUM 9.3 MG/DL (8.5-10.1)
[2017-06-03 12:21] LABS: BICARBONATE 25.2 MEQ/L (21.0-32.0)
[2017-06-03 12:24] LABS: CREATININE 1.1 MG/DL (0.50-1.00)
--- NOTE | 2017-06-03 13:45 | RADRPT ---
EXAM DATE/TIME: 06/03/2017 13:12 [facility] COMPARISON: No previous studies available for comparison. INDICATIONS : Tingling in arms and legs. MEDICAL HISTORY : Hypertension. SURGICAL HISTORY : Cholecystectomy. Hysterectomy. ENCOUNTER: Initial ACUITY: 1 day PAIN SCORE: 0/10 LOCATION: Paraspinal TECHNIQUE: Multiplanar, multisequence MRI of the brain was performed without contrast. FINDINGS: CEREBRUM: The ventricles are normal for age. No evidence of midline shift, mass lesion, hemorrhage or acute in farction. No extraaxial fluid collections are seen. The pituitary gland and suprasellar cistern are normal in configuration. WHITE MATTER: There are a few punctate areas of focal white matter T2 prolongation which are nonspecific. POSTERIOR FOSSA: The cerebellum and brainstem are intact. The 4th ventricle is midline. The cerebellopontine angle is unremarkable. The cerebellar tonsils are normal in position. DIFFUSION IMAGING: No focal areas of restricted diffusion are seen. No evidence of acute infarction. EXTRACRANIAL: Small mucous retention cyst in the right maxillary sinus. CONCLUSION: A few punctate areas of nonspecific white matter signal change. No acute intracranial findings. Dick Guadarrama MD on June 03, 2017 at 13:41 Board Certified Radiologist. This report was verified electronically.
--- NOTE | 2017-06-03 13:48 | RADRPT ---
EXAM DATE/TIME: 06/03/2017 13:12 [facility] COMPARISON: No previous studies available for comparison. INDICATIONS : Tingling in arms and legs. MEDICAL HISTORY : Hypertension. SURGICAL HISTORY : Cholecystectomy. Hysterectomy. ENCOUNTER: Initial ACUITY: 1 day PAIN SCORE: 0/10 LOCATION: Paraspinal TECHNIQUE: Multiplanar, multisequence MRI examination of the cervical spine was performed. FINDINGS: VERTEBRAE: Normal vertebral body height. Homogeneous marrow signal. ALIGNMENT: No evidence of subluxation. CORD: Normal configuration and signal. POST FOSSA: The cerebellar tonsils are normal in position. C2-C3: The thecal sac has a normal configuration. There is no evidence of disc herniation or spinal canal s tenosis. The neural foramina are patent bilaterally. C3-C4: Small central to minimally right paracentral disc protrusion mildly indenting ventral thecal sac. Sat isfactory preservation of posterior CSF space. No evidence of foraminal stenosis. C4-C5: Broad mild dorsal disc protrusion, minimally asymmetric to the left with mild indentation of the thec al sac and mild degree of canal stenosis. Foramina appear adequate. C5-C6: Minimal broad dorsal disc protrusion, mildly asymmetric to the left without significant associated ca nal or foraminal compromise. C6-C7: The thecal sac has a normal configuration. There is no evidence of disc herniation or spinal canal s tenosis. The neural foramina are patent bilaterally. C7-T1: The thecal sac has a normal configuration. There is no evidence of disc herniation or spinal canal s tenosis. The neural foramina are patent bilaterally. CONCLUSION: Mild severity disc protrusions at several levels as described. No evidence of cord abnormality Dick Guadarrama MD on June 03, 2017 at 13:44 Board Certified Radiologist. This report was verified electronically.
[2017-06-03 14:47] VITALS: BP 129/56; PULSE 59; RESP 16; O2SAT 96
== END 2017-06-03 15:07 | disposition home or self-care (01) ==
LOC: PHED 10:19
DX: R20.2 Paresthesia of skin (principal); I48.91 Unspecified atrial fibrillation; I10 Essential (primary) hypertension; I25.10 Atherosclerotic heart disease of native coronary artery without angina pectoris; E78.00 Pure hypercholesterolemia, unspecified; Z79.02 Long term (current) use of antithrombotics/antiplatelets; Z79.82 Long term (current) use of aspirin; Z79.899 Other long term (current) drug therapy; Z86.73 Personal history of transient ischemic attack (TIA), and cerebral infarction without residual deficits
CPT/HCPCS: 70551; 72141; 80048; 85025; 85610; 85730; 99284

== ENCOUNTER → 2017-06-11 | Day surgery (SDC) | payer OTHER ==
[~2017-06-11] MED LIST changes: +AMLO10TA2 PO; -CHOL4POW4 PO; +GABA300C5 PO; +LISI10TA3 PO; -LISI20TA PO; -NITR1PAT T-DERMAL; +PROPOFOL 500 MG/50 ML BTL IV ONE; -VITA1000 PO
== END | disposition home or self-care (01) ==
LOC: ESDC 08:08
PROVIDERS: ATTEND Internal Medicine Gastroenterology
DX: Z12.11 Encounter for screening for malignant neoplasm of colon (principal); Z80.0 Family history of malignant neoplasm of digestive organs; K57.30 Diverticulosis of large intestine without perforation or abscess without bleeding; K64.8 Other hemorrhoids

== ENCOUNTER 2017-06-13 23:17 | Emergency (ER) | payer OTHER ==
[~2017-06-13] VITALS: Ht 160 cm; Wt 109.5 kg
[~2017-06-13 23:17] MED LIST changes: -GABA300C5 PO; -LISI10TA3 PO; -PROPOFOL 500 MG/50 ML BTL IV ONE
[2017-06-13 23:27] VITALS: BP 164/80; PULSE 62; RESP 18; TEMP 98.6; O2SAT 100
[2017-06-13] MEDS ORDERED: LISI10TA3 PO (23:53)
[2017-06-13] MEDS ORDERED: GABA300C5 PO (23:53)
--- NOTE | 2017-06-13 23:54 | PD ---
HPI Chief Complaint: Numbness/Tingling Time Seen by Provider: 23:44 Travel History International Travel<30 days: No Contact w/Intl Traveler<30days: No Traveled to known affect area: No History of Present Illness HPI Patient comes in complaining of numbness and tingling over her left neck arm and left lower extremity as she has been complaining over the past month and a half. She has had multiple workups and a recent admission for the same. Patient denies any alleviating or aggravating factors. Patient denies any associated factors such as paralysis, urinary or fecal incontinence, inability to walk, and has an upcoming appointment with a neurologist. Patient is basically here to see if she can get a shot or something to get some relief and be able to go sleep. No known drug allergy Past medical history significant for dizziness, TIA, hypertension high cholesterol coronary artery disease with 3 stents, hypercholesterolemia, atrial fibrillation, hypertension, fusion of L4 and L5, cholecystectomy hysterectomy PFSH Past Medical History Arthritis: No Asthma: No Atrial Fibrillation: Yes Autoimmune Disease: No Blood Disorders: No Anxiety: Yes Depression: No Heart Rhythm Problems: Yes (hx of A-Fib and palpatations) Cancer: No Cardiac Catheterization: Yes Cardiovascular Problems: Yes (HTN, high chol, CAD with 3 stents ) High Cholesterol: Yes Chemotherapy: No Chest Pain: Yes Congestive Heart Failure: No COPD: No Cerebrovascular Accident: Yes (possible TIA) Coronary Artery Disease: Yes Diabetes: No Diminished Hearing: No Endocrine: No Gastrointestinal Disorders: Yes GERD: No Glaucoma: No Genitourinary: No Headaches: No Hepatitis: No Hiatal Hernia: No Heparin Induced Thrombocytopen: No Hypertension: Yes Immune Disorder: No Kidney Stones: No Musculoskeletal: Yes Neurologic: Yes Psychiatric: No Reproductive: No Respiratory: No Immunizations Current: No Migraines: No Myocardial Infarction: No Radiation Therapy: No Renal Failure: No Seizures: No Sickle Cell Disease: No Sleep Apnea: No Thyroid Disease: No Ulcer: No ?: Not : 6 Para: 4 : 2 Past Surgical History Abdominal Surgery: Yes (gallbladder removed and hysterectomy) AICD: No Appendectomy: No Arteriovenous Shunt: No Cardiac Surgery: Yes (3 stents and balloon angioplasty ) Cholecystectomy: Yes (1998) Coronary Artery Bypass Graft: No Coronary Stent: Yes (X3) Ear Surgery: No Endocrine Surgery: No Eye Surgery: No Genitourinary Surgery: No Gynecologic Surgery: Yes (ROCIO/BSO) Hysterectomy: Yes Insulin Pump: No Joint Replacement: No Oral Surgery: No Pacemaker: No Thoracic Surgery: Yes (fusion L4 and L5) Other Surgery: Yes Social History Alcohol Use: No Tobacco Use: No Substance Use: No Allergies-Medications (Allergen,Severity, Reaction): Coded Allergies: No Known Allergies (Verified Allergy, Unknown, 06/13/17) Reported Meds & Prescriptions Reported Meds & Active Scripts Active Reported Gabapentin 300 Mg Cap 300 Mg PO BID Lisinopril 10 Mg Tab 10 Mg PO DAILY Amlodipine (Amlodipine Besylate) 10 Mg Tab 10 Mg PO DAILY Hydrocodone-Acetaminophen 10-325 mg Tab 1 Tab PO BID Daily Multiple Vitamin (Multiple Vitamin) 1 Tab Tab 1 Tab PO DAILY Plavix (Clopidogrel Bisulfate) 75 Mg Tab 75 Mg PO DAILY Atorvastatin (Atorvastatin Calcium) 80 Mg Tab 80 Mg PO HS Aspirin Low Dose (Aspirin) 81 Mg Chew 81 Mg CHEW DAILY Review of Systems General / Constitutional: No: Fever Eyes: No: Visual changes HENT: No: Headaches Cardiovascular: No: Chest Pain or Discomfort Respiratory: No: Shortness of Breath Gastrointestinal: No: Abdominal Pain Genitourinary: No: Dysuria Musculoskeletal: No: Pain Skin: No Rash Neurologic: Positive: Paresthesia Psychiatric: No: Depression Endocrine: No: Polydipsia Hematologic/Lymphatic: No: Easy Bruising Physical Exam Narrative GENERAL: SKIN: Warm and dry. HEAD: Atraumatic. Normocephalic. EYES: Pupils equal and round. No scleral icterus. No injection or drainage. ENT: No nasal bleeding or discharge. Mucous membranes pink and moist. NECK: Trachea midline. No JVD. CARDIOVASCULAR: Regular rate and rhythm. RESPIRATORY: No accessory muscle use. Clear to auscultation. Breath sounds equal bilaterally. GASTROINTESTINAL: Abdomen soft, non-tender, nondistended. MUSCULOSKELETAL: Extremities without clubbing, cyanosis, or edema. No obvious deformities. NEUROLOGICAL: Awake and alert. No obvious cranial nerve deficits. Motor grossly within normal limits. Five out of 5 muscle strength in the arms and legs. Normal speech. PSYCHIATRIC: Appropriate mood and affect; insight and judgment normal. Data Data Last Documented VS Vital Signs Date Time Temp Pulse Resp B/P (MAP) Pulse Ox O2 Delivery O2 Flow Rate FiO2 06/13/17 23:46 16 100 Room Air 06/13/17 23:27 98.6 62 164/80 (108) [facility] Medical Decision Making Medical Screen Exam Complete: Yes Emergency Medical Condition: Yes Medical Record Reviewed: Yes Differential Diagnosis Not applicable Narrative Course Patient has had a thorough evaluation going back to April 27, 2017 had a chest x- ray May 04 had a neck MRA, May [address], June 03 she had a cervical spine MRI, and a brain MRI on June 03 as well June 03 brain MRI read as a few punctate areas of nonspecific white matter signal change. No acute intracranial findings per radiologist MRI of neck read by radiologist as mild severity disc protrusions at several levels as described above but without evidence of cord abnormality MRA carotids that were performed on May 04, 2017 read as normal examination by radiologist Patient also had a colonoscopy on June 13. Additionally the patient was admitted and evaluated by Dr. Garcia on May 06 in which case her paresthesias showed: No overt signs of stroke on imaging she has persistent paresthesias of left upper and lower extremities strength appears relatively symmetric, multiple studies were done as above, without any evidence of acute intervention necessary. According to neurology evaluation the patient is already on Plavix atorvastatin aspirin combination by Dr. Schmid Diagnosis Primary Impression: Paresthesia Referrals: Chaparro Ford MD For further care and evaluation. Referral to neurologist for any additional treatment or care. Please advise Dr. Ford that you have already had an admission, MRI of your brain MRI of your neck MRA Patient Instructions: General Instructions, Paresthesia (ED) Disposition: 01 DISCHARGE HOME Condition: Stable Yan Caceres MD Jun 13, 2017 23:54
[2017-06-14] MEDS ORDERED: MORPHINE SULFATE 4 MG/ML INJ IM ONE (00:15)
[2017-06-14] MEDS ORDERED: ONDANSETRON ODT 4 MG TAB PO/SL ONE (00:15)
[2017-06-14 00:54] VITALS: BP 105/50
== END 2017-06-14 01:04 | disposition home or self-care (01) ==
LOC: PHED 23:17
DX: R20.2 Paresthesia of skin (principal); E78.00 Pure hypercholesterolemia, unspecified; I10 Essential (primary) hypertension; I25.10 Atherosclerotic heart disease of native coronary artery without angina pectoris; Z79.02 Long term (current) use of antithrombotics/antiplatelets
CPT/HCPCS: 96372; 99283; J2270

== ENCOUNTER 2017-06-19 09:23 | Emergency (ER) | payer OTHER ==
[~2017-06-19] VITALS: Ht 160 cm; Wt 111.0 kg
[~2017-06-19 09:23] MED LIST changes: +GABA300C5 PO; +LISI10TA3 PO; -PANT40TA3 PO
[2017-06-19 09:26] VITALS: BP 168/100; PULSE 65; RESP 18; TEMP 98.1; O2SAT 97
--- NOTE | 2017-06-19 09:56 | RADRPT ---
EXAM DATE/TIME: 06/19/2017 09:37 [facility] COMPARISON: No previous studies available for comparison. INDICATIONS : Fall, left patella pain. MEDICAL HISTORY : None. SURGICAL HISTORY : None. ENCOUNTER: Initial ACUITY: 1 day PAIN SCORE: 10/10 LOCATION: Left patella FINDINGS: Four view examination of the left knee demonstrates no evidence of fracture or dislocation. Bony min eralization is normal. The articular surfaces are intact. The suprapatellar soft tissues have a nor mal configuration. CONCLUSION: No evidence of recent bone injury. Alexx Purcell MD on June 19, 2017 at 9:54 Board Certified Radiologist. This report was verified electronically.
--- NOTE | 2017-06-19 09:56 | PD ---
HPI Chief Complaint: Musculoskeletal Complaint Time Seen by Provider: 09:42 Travel History International Travel<30 days: No Contact w/Intl Traveler<30days: No Traveled to known affect area: No History of Present Illness HPI Patient comes to the emergency department complaining of left knee pain that began last night. Patient reports that she was chasing after her grandson when she tripped and fell coming down on her left knee. Patient describes pain as a throbbing aching sensation of the anterior aspect of her left knee without radiation. Pain is worse with ambulating. Patient reports applying ice and taking ibuprofen with minimal relief of symptoms. Pain felt worse this morning. Denies any other known injury. Denies hitting her head, loss consciousness, chest pain, shortness breath, headache, dizziness, fevers, abdominal pain, or numbness or tingling anywhere. Patient reports taking all of her home medication as prescribed. PFSH Past Medical History Arthritis: No Asthma: No Atrial Fibrillation: Yes Autoimmune Disease: No Blood Disorders: No Anxiety: Yes Depression: No Heart Rhythm Problems: Yes (hx of A-Fib and palpatations) Cancer: No Cardiac Catheterization: Yes Cardiovascular Problems: Yes (HTN) High Cholesterol: Yes Chemotherapy: No Chest Pain: Yes Congestive Heart Failure: No COPD: No Cerebrovascular Accident: Yes (possible TIA) Coronary Artery Disease: Yes Diabetes: No Diminished Hearing: No Endocrine: No Gastrointestinal Disorders: Yes GERD: No Glaucoma: No Genitourinary: No Headaches: No Hepatitis: No Hiatal Hernia: No Heparin Induced Thrombocytopen: No Hypertension: Yes Immune Disorder: No Kidney Stones: No Musculoskeletal: Yes Neurologic: Yes Psychiatric: No Reproductive: No Respiratory: No Immunizations Current: No Migraines: No Myocardial Infarction: No Radiation Therapy: No Renal Failure: No Seizures: No Sickle Cell Disease: No Sleep Apnea: No Thyroid Disease: No Ulcer: No Tetanus Vaccination: < 5 Years Influenza Vaccination: No ?: Not : 6 Para: 4 : 2 Past Surgical History Abdominal Surgery: Yes (gallbladder removed and hysterectomy) AICD: No Appendectomy: No Arteriovenous Shunt: No Cardiac Surgery: Yes (3 stents and balloon angioplasty ) Cholecystectomy: Yes (1998) Coronary Artery Bypass Graft: No Coronary Stent: Yes (X3) Ear Surgery: No Endocrine Surgery: No Eye Surgery: No Genitourinary Surgery: No Gynecologic Surgery: Yes (ROCIO/BSO) Hysterectomy: Yes Insulin Pump: No Joint Replacement: No Oral Surgery: No Pacemaker: No Thoracic Surgery: Yes (fusion L4 and L5) Other Surgery: Yes Social History Alcohol Use: No Tobacco Use: No Substance Use: No Allergies-Medications (Allergen,Severity, Reaction): Coded Allergies: No Known Allergies (Verified Allergy, Unknown, 06/19/17) Reported Meds & Prescriptions Reported Meds & Active Scripts Active Reported Gabapentin 300 Mg Cap 300 Mg PO BID Lisinopril 10 Mg Tab 10 Mg PO DAILY Amlodipine (Amlodipine Besylate) 10 Mg Tab 10 Mg PO DAILY Hydrocodone-Acetaminophen 10-325 mg Tab 1 Tab PO BID Daily Multiple Vitamin (Multiple Vitamin) 1 Tab Tab 1 Tab PO DAILY Plavix (Clopidogrel Bisulfate) 75 Mg Tab 75 Mg PO DAILY Atorvastatin (Atorvastatin Calcium) 80 Mg Tab 80 Mg PO HS Aspirin Low Dose (Aspirin) 81 Mg Chew 81 Mg CHEW DAILY Review of Systems Except as stated in HPI: all other systems reviewed are Neg Physical Exam Narrative GENERAL: Well-developed, overly nourished, in no acute distress, and non-ill appearing. SKIN: Focused skin assessment warm and dry. HEAD: Atraumatic. Normocephalic. EYES: Pupils equal and round. EOMI. No scleral icterus. No injection or drainage. ENT: No nasal bleeding or discharge. Mucous membranes pink and moist. NECK: Trachea midline. Supple. No nuclear rigidity. CARDIOVASCULAR: Dorsal pulses 2+, intact, and equal bilaterally. Capillary refill less than 2 seconds. RESPIRATORY: No accessory muscle use. No respiratory distress. MUSCULOSKELETAL: No obvious deformities. No clubbing. No cyanosis. No edema. Full range of motion. Knee: Negative patellar apprehension, varus and valgus maneuvers, anterior draw test, and Ksenia test. Pulses equal BL distal to injury. Capillary refill less than 2 seconds distal to injury and equal BL. FROM distal to injury and equal BL. Strength distal to injury equal BL. NV intact distal to injury. Dorsal pulses equal BL. Sensation equal BL 1st web space. Patient reports tenderness palpation over anterior aspect of left knee. No crepitus, soft tissue swelling, or erythematous. NEUROLOGICAL: Awake and alert. No obvious cranial nerve deficits. Motor grossly within normal limits. Normal speech. PSYCHIATRIC: Appropriate mood and affect; insight and judgment normal. Data Data Last Documented VS Vital Signs Date Time Temp Pulse Resp B/P (MAP) Pulse Ox O2 Delivery O2 Flow Rate FiO2 06/19/17 10:23 137/62 (87) 06/19/17 09:26 98.1 65 18 97 Orders Orders Knee, Complete (4vws) (06/19/17 ) Ice/Cold Pack (06/19/17 09:31) Ed Discharge Order (06/19/17 10:06) Splint Or Brace Apply/Monitor (06/19/17 10:06) [employer] Request For Service (06/19/17 10:06) [facility] Medical Decision Making Medical Screen Exam Complete: Yes Emergency Medical Condition: Yes Interpretation(s) Last Impressions Knee X-Ray 06/19/17 0000 Signed Impressions: Service Date/Time: Monday, June 19, 2017 09:37 - CONCLUSION: No evidence of recent bone injury. Alexx Purcell MD Differential Diagnosis Fracture, strain, contusion, dislocation Narrative Course The patient appears to have suffered a contusion of the extremity. There is no clinical evidence to suspect bony injury by exam. Radiographic examination revealed no fracture seen at this time. The patient has full range of motion on active and passive motions. There is no significant edema. There is no proximal or distal joint effusion. The distal extremity appears neurovascularly intact, without evidence of neurovascular injury nor compartment syndrome. Tendon exam also was intact. The patient was discharged on pain medication instructions and given warnings for vascular compromise. The patient is to follow up with their regular physician or Orthopedics. The patient agrees with plan. The patient has a prior history of hypertension and states has been taking their antihypertensive medications. The patient has no symptoms as well. The patient denied headache, changes in vision, nausea, vomiting, dizziness, weakness or loss of sensation. The patient denied and chest, back or abdominal pain. The patient also denied any shortness of breath, dyspnea on exertion, orthopnea or PND. The patient denies any edema to extremities. The patients blood pressures at discharge were at an acceptable level. I discussed with the patient that the standard of care is to not adjust antihypertensive medications at this time and for them to follow up with a primary care physician for continued outpatient evaluation and potential adjustment of blood pressure medication at that time. Return warnings were given to the patient and the patient agreed with plan of care. Patient in no obvious distress upon re-evaluation. All pertinent Radiology result(s) discussed with patient. Any questions/concerns in reference to patient diagnosis/condition discussed and clarified prior to patient's discharge. Reinforced sheer importance of close follow up with patient's primary physician or primary care clinic and/or orthopedic. Instructed patient to return to ED immediately, if symptoms return/worsen. Patient showed understanding of above instructions. Further instructions and recommendations were detailed in discharge paperwork. Patient ambulated without difficulty out of ED at discharge. Diagnosis Primary Impression: Contusion of left knee, initial encounter Referrals: Roland Sow MD Patient Instructions: Contusion in Adults (ED), General Instructions Additional Instructions: Follow-up with your primary care physician and/or orthopedic in 3-5 days for reevaluation of any pain. Follow-up with your primary care doctor for reevaluation and possible adjustment of your blood pressure medicine. Apply ice to affected area 20 minutes prior as needed for pain. Wear Tahir wrap as needed for comfort. Take your pain medication as prescribed for pain control. Return to the emergency department if symptoms get worse. Disposition: 01 DISCHARGE HOME Condition: Stable Adam Hunter June 19, 2017 09:56
[2017-06-19 10:23] VITALS: BP 137/62
== END 2017-06-19 10:38 | disposition home or self-care (01) ==
LOC: PHEFT 09:23
DX: S80.02XA Contusion of left knee, initial encounter (principal); I10 Essential (primary) hypertension; I48.91 Unspecified atrial fibrillation; F41.9 Anxiety disorder, unspecified; E78.00 Pure hypercholesterolemia, unspecified; I25.10 Atherosclerotic heart disease of native coronary artery without angina pectoris; W01.0XXA Fall on same level from slipping, tripping and stumbling without subsequent striking against object, initial encounter; Z86.73 Personal history of transient ischemic attack (TIA), and cerebral infarction without residual deficits; Z79.02 Long term (current) use of antithrombotics/antiplatelets
CPT/HCPCS: 73564; 99283

== ENCOUNTER 2017-07-19 14:41 | Emergency (ER) | payer OTHER, MEDICAID ==
[~2017-07-19] VITALS: Ht 160 cm; Wt 112.9 kg
[2017-07-19 14:54] VITALS: BP 139/75; PULSE 63; RESP 16; TEMP 97; O2SAT 98
--- NOTE | 2017-07-19 17:31 | RADRPT ---
EXAM DATE: 07/19/2017 5:25 PM EDT AGE/SEX: 57 years / Female INDICATIONS: Pain that wraps around right ankle, no known injury. CLINICAL DATA: This is the patient's initial encounter. Patient reports that signs and symptoms have been present for 3 days and indicates a pain score of 10/10. MEDICAL/SURGICAL HISTORY: None. None. COMPARISON: No prior [facility] exams available for comparison. FINDINGS: Bony structures are intact and in normal alignment. Joints are intact without dislocation or signifi cant arthropathy. Osseous density is normal. Soft tissues are unremarkable. No radiopaque foreign bodies seen. CONCLUSION: Unremarkable exam with no underlying bony abnormality. Electronically signed by: Kei Peraza MD 07/19/2017 5:30 PM EDT
[2017-07-19] MEDS ORDERED: TRAM50 PO (17:51)
--- NOTE | 2017-07-19 17:52 | PD ---
HPI Chief Complaint: Injury Time Seen by Provider: 16:43 Travel History International Travel<30 days: No Contact w/Intl Traveler<30days: No Traveled to known affect area: No History of Present Illness HPI 57-year-old female here with right ankle pain and swelling 2 days. She cannot recall specific injury or trauma. She reports however that she was moving several days ago and may have twisted it. The pain has become increasingly more painful and weightbearing has become more difficult. Denies altered sensation or weakness of the extremity. No swelling to the leg. Symptom severity is moderate. Unrelieved by Tylenol and Aleve. PFSH Past Medical History Hx Anticoagulant Therapy: Yes (plavix) Arthritis: No Asthma: No Atrial Fibrillation: Yes Autoimmune Disease: No Blood Disorders: No Anxiety: Yes Depression: No Heart Rhythm Problems: Yes (hx of A-Fib and palpatations) Cancer: No Cardiac Catheterization: Yes Cardiovascular Problems: Yes (htn on meds, 3 heart stents no MN) High Cholesterol: Yes Chemotherapy: No Chest Pain: Yes Congestive Heart Failure: No COPD: No Cerebrovascular Accident: Yes (tia) Coronary Artery Disease: Yes Diabetes: No Diminished Hearing: No Endocrine: No Gastrointestinal Disorders: Yes GERD: No Glaucoma: No Genitourinary: No Headaches: No Hepatitis: No Hiatal Hernia: No Heparin Induced Thrombocytopen: No Hypertension: Yes Immune Disorder: No Kidney Stones: No Musculoskeletal: Yes Neurologic: Yes Psychiatric: No Reproductive: No Respiratory: No Immunizations Current: No Migraines: No Myocardial Infarction: No Radiation Therapy: No Renal Failure: No Seizures: No Sickle Cell Disease: No Sleep Apnea: No Thyroid Disease: No Ulcer: No Tetanus Vaccination: < 5 Years Influenza Vaccination: No ?: Not : 6 Para: 4 : 2 Past Surgical History Abdominal Surgery: Yes (gallbladder removed and hysterectomy) AICD: No Appendectomy: No Arteriovenous Shunt: No Cardiac Surgery: Yes (3 stents and balloon angioplasty ) Cholecystectomy: Yes (1998) Coronary Artery Bypass Graft: No Coronary Stent: Yes (X3) Ear Surgery: No Endocrine Surgery: No Eye Surgery: No Genitourinary Surgery: No Gynecologic Surgery: Yes (ROCIO/BSO) Hysterectomy: Yes Insulin Pump: No Joint Replacement: No Oral Surgery: No Pacemaker: No Thoracic Surgery: Yes (fusion L4 and L5) Other Surgery: Yes Social History Alcohol Use: No Tobacco Use: No Substance Use: No Allergies-Medications (Allergen,Severity, Reaction): Coded Allergies: No Known Allergies (Verified Allergy, Unknown, 07/19/17) Reported Meds & Prescriptions Reported Meds & Active Scripts Active Reported Gabapentin 300 Mg Cap 300 Mg PO BID Lisinopril 10 Mg Tab 10 Mg PO DAILY Amlodipine (Amlodipine Besylate) 10 Mg Tab 10 Mg PO DAILY Hydrocodone-Acetaminophen 10-325 mg Tab 1 Tab PO BID Daily Multiple Vitamin (Multiple Vitamin) 1 Tab Tab 1 Tab PO DAILY Plavix (Clopidogrel Bisulfate) 75 Mg Tab 75 Mg PO DAILY Atorvastatin (Atorvastatin Calcium) 80 Mg Tab 80 Mg PO HS Aspirin Low Dose (Aspirin) 81 Mg Chew 81 Mg CHEW DAILY Physical Exam Narrative GENERAL: Alert and well-appearing 57-year-old female. SKIN: Warm and dry. HEAD: Normocephalic. EYES: No scleral icterus. No injection or drainage. NECK: Supple, trachea midline. No JVD or lymphadenopathy. CARDIOVASCULAR: Regular rate and rhythm without murmurs, gallops, or rubs. RESPIRATORY: Breath sounds equal bilaterally. No accessory muscle use. GASTROINTESTINAL: Abdomen soft, non-tender, nondistended. MUSCULOSKELETAL: No cyanosis. RLE: Mild swelling to the ankle. Tenderness over the lateral and medial malleolus. No warmth or erythema of the joint. Patient can dorsiflex and plantarflex the foot. Palpable DP pulse. Normal sensation. Brisk cap refill. Data Data Last Documented VS Vital Signs Date Time Temp Pulse Resp B/P (MAP) Pulse Ox O2 Delivery O2 Flow Rate FiO2 07/19/17 14:54 97.0 63 16 139/75 (96) 98 Orders Orders Ankle, Complete ([id number]) (07/19/17 ) Tahir Bandage (07/19/17 17:38) MDM Medical Decision Making Medical Screen Exam Complete: Yes Emergency Medical Condition: Yes Differential Diagnosis SPRAIN, FX, GOUTY ARTHRITIS. Narrative Course 57-year-old female with right ankle pain. X-rays negative for fracture. The extremity is neurovascularly intact. Tahir wrap applied by gas plant technician. Ultram for pain. Rest, ice, elevate the extremity. Follow-up with her primary doctor. Diagnosis Primary Impression: Ankle pain Qualified Codes: M25.571 - Pain in right ankle and joints of right foot Referrals: Primary Care Physician Additional Instructions: Medication as directed. Rest, ice, elevate the extremity. Follow-up with her primary doctor. Scripts Tramadol (Ultram) 50 Mg Tab 50 MG PO Q6H Y for PAIN, #10 TAB 0 Refills Prov: Giselle Coombs 07/19/17 Disposition: 01 DISCHARGE HOME Condition: Stable Giselle Coombs July 19, 2017 17:52
== END 2017-07-19 18:04 | disposition home or self-care (01) ==
LOC: PHED 14:41 → PHEFT 18:04
DX: M25.571 Pain in right ankle and joints of right foot (principal); E78.00 Pure hypercholesterolemia, unspecified; F41.9 Anxiety disorder, unspecified; I10 Essential (primary) hypertension; I25.10 Atherosclerotic heart disease of native coronary artery without angina pectoris; I48.91 Unspecified atrial fibrillation; Z86.73 Personal history of transient ischemic attack (TIA), and cerebral infarction without residual deficits; Z95.5 Presence of coronary angioplasty implant and graft; Z90.710 Acquired absence of both cervix and uterus
CPT/HCPCS: 73610; 99283